=== PATIENT | male | born 1965 | race Caucasian/White ===

== ENCOUNTER 2019-11-21 03:37 | Observation (INO) | payer OTHER ==
[2019-11-21] MEDS ORDERED: VANCOMYCIN IV PER PHARMACY 1 EACH MISC MISCELLANE PRN (04:05)
[2019-11-21] MEDS ORDERED: VANCOMYCIN 2,250 MG in SODIUM CHLORIDE 0.9% 500 ML 500 ML IVPB STA (04:09)
--- NOTE | 2019-11-21 04:26 | ED ---
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 Patient reports that he spends about 12 hours sitting and gets frequent boils on his legs due to this. He states he can usually open them and drain them. He states that couple days ago he drained 1 on his right posterior thigh but since that time has persistent pain, drainage and is noticed redness and swelling of his anterior thigh. Patient denies fevers or chills. Patient denies being diabetic. She denies any pain in the rectum or pain with bowel movements. Denies any pain in the penis or scrotum. - Related Data Home Medications Medication Instructions Recorded Confirmed Ibuprofen [Motrin] 800 mg PO Q6HR PRN 11/13/13 11/13/13 Penicillin V Potassium [Pen Vee K] 500 mg PO TID 11/13/13 11/13/13 Allergies Allergy/AdvReac Type Severity Reaction Status Date / Time No Known Allergies Allergy Verified 11/21/19 03:50 Review of Systems ROS Statement: Those systems with pertinent positive or pertinent negative responses have been documented in the HPI. ROS Other: All systems not noted in ROS Statement are negative. Past Medical History Additional Past Medical History / Comment(s): dental pain History of Any Multi-Drug Resistant Organisms: None Reported Past Surgical History: Cholecystectomy, Tonsillectomy Past Psychological History: No Psychological Hx Reported Smoking Status: Current every day smoker Past Alcohol Use History: Occasional Past Drug Use History: None Reported General Exam - General Exam Comments Initial Comments: Physical Exam GENERAL: Patient is well-developed and well-nourished. Patient is nontoxic and well- hydrated and is in no distress. HENT: Normocephalic, Atraumatic. EYES: PERRL, EOMI PULMONARY: Unlabored respirations. No audible rales rhonchi or wheezing was noted. CARDIOVASCULAR: There is a regular rate and rhythm without any murmurs gallops or rubs. ABDOMEN: Soft and nontender with normal bowel sounds. SKIN: Multiple healed lesions on the thigh tracks consistent with chronic infections Open draining wound in the posterior medial thigh on the right, significant surrounding erythema induration, no fluctuance palpated Large tender inguinal lymph nodes : Deferred NEUROLOGIC: Patient is alert and oriented x3. Moving all extremities spontaneously MUSCULOSKELETAL: Normal extremities with adequate strength and full range of motion. No lower extremity swelling or edema. No calf tenderness. PSYCHIATRIC: Normal psychiatric evaluation. Limitations: no limitations Course Vital Signs 11/21/19 11/21/19 03:46 06:19 Temperature 98.1 F Pulse Rate 105 H 94 Respiratory 18 18 Rate Blood Pressure 157/89 162/82 O2 Sat by Pulse 97 95 Oximetry Medical Decision Making - Medical Decision Making Patient was seen and evaluated history was obtained from the patient His exam is concerning for very large area of cellulitis possible underlying abscess however due to induration no area of fluctuance is palpated Septic workup was initiated patient has leukocytosis with no lactic acidosis - recent undiagnosed diabetes with a glucose of greater than 450, insulin was ordered Computed tomography scan confirms a abscess measuring 9 x 1.5 cm his findings were discussed with surgeon application support manager Dr. Lindsay who agrees with the plan for a mission to medicine for sepsis and diabetes she will be on consult for possible I&D The patient was updated on plan and is agreeable - Lab Data Result diagrams: 11/21/19 04:21 11/21/19 04:21 Lab Results 11/21/19 11/21/19 11/21/19 Range/Units 04:21 04:21 04:21 WBC 15.9 H (3.8-10.6) k/uL RBC 4.84 (4.30-5.90) m/uL Hgb 15.3 (13.0-17.5) gm/dL Hct 45.2 (39.0-53.0) % MCV 93.4 (80.0-100.0) fL MCH 31.5 (25.0-35.0) pg MCHC 33.8 (31.0-37.0) g/dL RDW 13.4 (11.5-15.5) % Plt Count 370 (150-450) k/uL Neutrophils % 80 % Lymphocytes % 10 % Monocytes % 6 % Eosinophils % 2 % Basophils % 0 % Neutrophils # 12.7 H (1.3-7.7) k/uL Lymphocytes # 1.6 (1.0-4.8) k/uL Monocytes # 0.9 (0-1.0) k/uL Eosinophils # 0.3 (0-0.7) k/uL Basophils # 0.1 (0-0.2) k/uL PT 9.5 (9.0-12.0) sec INR 0.9 (<1.2) APTT 25.3 (22.0-30.0) sec Sodium 132 L (137-145) mmol/L Potassium 4.5 (3.5-5.1) mmol/L Chloride 102 (98-107) mmol/L Carbon Dioxide 20 L (22-30) mmol/L Anion Gap 10 mmol/L BUN 11 (9-20) mg/dL Creatinine 0.41 L (0.66-1.25) mg/dL Est GFR (CKD-EPI)AfAm >90 (>60 ml/min/1.73 sqM) Est GFR (CKD-EPI)NonAf >90 (>60 ml/min/1.73 sqM) Glucose 454 H (74-99) mg/dL POC Glucose (mg/dL) (75-99) mg/dL POC Glu Mycologist ID Plasma Lactic Acid Gray (0.7-2.0) mmol/L Calcium 9.2 (8.4-10.2) mg/dL Total Bilirubin 1.0 (0.2-1.3) mg/dL AST 65 H (17-59) U/L ALT 55 H (4-49) U/L Alkaline Phosphatase 187 H (38-126) U/L Total Protein 6.6 (6.3-8.2) g/dL Albumin 3.7 (3.5-5.0) g/dL Urine Color Urine Appearance (Clear) Urine pH (5.0-8.0) Ur Specific [place] (1.001-1.035) Urine Protein (Negative) Urine Glucose (UA) (Negative) Urine Ketones (Negative) Urine Blood (Negative) Urine Nitrite (Negative) Urine Bilirubin (Negative) Urine Urobilinogen (<2.0) mg/dL Ur Leukocyte Esterase (Negative) 11/21/19 11/21/19 11/21/19 Range/Units 04:21 04:35 05:46 WBC (3.8-10.6) k/uL RBC (4.30-5.90) m/uL Hgb (13.0-17.5) gm/dL Hct (39.0-53.0) % MCV (80.0-100.0) fL MCH (25.0-35.0) pg MCHC (31.0-37.0) g/dL RDW (11.5-15.5) % Plt Count (150-450) k/uL Neutrophils % % Lymphocytes % % Monocytes % % Eosinophils % % Basophils % % Neutrophils # (1.3-7.7) k/uL Lymphocytes # (1.0-4.8) k/uL Monocytes # (0-1.0) k/uL Eosinophils # (0-0.7) k/uL Basophils # (0-0.2) k/uL PT (9.0-12.0) sec INR (<1.2) APTT (22.0-30.0) sec Sodium (137-145) mmol/L Potassium (3.5-5.1) mmol/L Chloride (98-107) mmol/L Carbon Dioxide (22-30) mmol/L Anion Gap mmol/L BUN (9-20) mg/dL Creatinine (0.66-1.25) mg/dL Est GFR (CKD-EPI)AfAm (>60 ml/min/1.73 sqM) Est GFR (CKD-EPI)NonAf (>60 ml/min/1.73 sqM) Glucose (74-99) mg/dL POC Glucose (mg/dL) 379 H (75-99) mg/dL POC Glu Mycologist ID Manuela, Micki Plasma Lactic Acid Gray 1.2 (0.7-2.0) mmol/L Calcium (8.4-10.2) mg/dL Total Bilirubin (0.2-1.3) mg/dL AST (17-59) U/L ALT (4-49) U/L Alkaline Phosphatase (38-126) U/L Total Protein (6.3-8.2) g/dL Albumin (3.5-5.0) g/dL Urine Color Yellow Urine Appearance Clear (Clear) Urine pH 6.5 (5.0-8.0) Ur Specific [place] 1.035 (1.001-1.035) Urine Protein Negative (Negative) Urine Glucose (UA) 4+ H (Negative) Urine Ketones 1+ H (Negative) Urine Blood Negative (Negative) Urine Nitrite Negative (Negative) Urine Bilirubin Negative (Negative) Urine Urobilinogen <2.0 (<2.0) mg/dL Ur Leukocyte Esterase Negative (Negative) Disposition Clinical Impression: Sepsis, Abscess, Uncontrolled diabetes mellitus Disposition: ADMITTED IP TO THIS HOSP Condition: Serious Is patient prescribed a controlled substance at d/c from ED?: No Referrals: None,Stated [Primary Care Provider] - 1-2 days
[2019-11-21 04:30] LABS: Basophils # (A) 0.1 k/uL (0-0.2); Basophils % (A) 0 %; Eosinophils # (A) 0.3 k/uL (0-0.7); Eosinophils % (A) 2 %; HCT 45.2 % (39.0-53.0); HGB 15.3 gm/dL (13.0-17.5); Lymphocytes # (A) 1.6 k/uL (1.0-4.8); Lymphocytes % (A) 10 %; MCH 31.5 pg (25.0-35.0); MCHC 33.8 g/dL (31.0-37.0); MCV 93.4 fL (80.0-100.0); Mean Platelet Volume 7.8; Monocytes # (A) 0.9 k/uL (0-1.0); Monocytes % (A) 6 %; Neutrophils # (A) 12.7 k/uL (1.3-7.7); Neutrophils % (A) 80 %; Platelet Count 370 k/uL (150-450); RBC 4.84 m/uL (4.30-5.90); RDW 13.4 % (11.5-15.5); WBC 15.9 k/uL (3.8-10.6)
[2019-11-21] MEDS: SODIUM CHLORIDE 0.9% 1,000 ML IV SCH ×3 (04:34→19:40)
[2019-11-21] MEDS: SODIUM CHLORIDE 0.9% 500 ML 500 ML IV SCH ×2 (04:34→05:07)
[2019-11-21 04:40] LABS: ALT 55 U/L (4-49); AST 65 U/L (17-59); African American GFR (CKD) >90 (>60 ml/min/1.73 sqM); Albumin 3.7 g/dL (3.5-5.0); Alkaline Phosphatase 187 U/L (38-126); Anion Gap 10 mmol/L; Blood Urea Nitrogen 11 mg/dL (9-20); Calcium 9.2 mg/dL (8.4-10.2); Carbon Dioxide 20 mmol/L (22-30); Chloride 102 mmol/L (98-107); Glucose 454 mg/dL (74-99); Non-African American GFR(CKD) >90 (>60 ml/min/1.73 sqM); Potassium 4.5 mmol/L (3.5-5.1); Sodium 132 mmol/L (137-145); Total Protein 6.6 g/dL (6.3-8.2)
[2019-11-21 04:42] LABS: INR 0.9 (<1.2); Partial Thromboplastin Time 25.3 sec (22.0-30.0); Prothrombin Time 9.5 sec (9.0-12.0)
[2019-11-21] MEDS ORDERED: INSULIN REGULAR 100 UNIT/ML VIAL SQ ONE (04:46)
[2019-11-21 04:51] LABS: Appearance,Urine Clear (Clear); Bilirubin,Urine Negative (Negative); Blood,Urine Negative (Negative); Color,Urine Yellow; Glucose,Urine (UA) 4+ (Negative); Ketones,Urine 1+ (Negative); Leukocyte Esterase,Urine Negative (Negative); Nitrite,Urine Negative (Negative); PH, Urine 6.5 (5.0-8.0); Protein,Urine Negative (Negative); Specific Gravity,Urine 1.035 (1.001-1.035); Urobilinogen,Urine <2.0 mg/dL (<2.0)
[2019-11-21 05:48] LABS: Glucose,Whole Blood 379 mg/dL (75-99)
--- NOTE | 2019-11-21 06:10 | CT ---
EXAMINATION TYPE: CT pelvis w con DATE OF EXAM: 11/21/2019 COMPARISON: None HISTORY: R/O Abcess in Rt Groin CT DLP: 1968.1 mGycm Automated exposure control for dose reduction was used. CONTRAST: Performed with IV Contrast, patient injected with 100 mL of Isovue 300. Images were obtained from the iliac crests to the subtrochanteric femurs with IV contrast. There is rounded 3 cm umbilical hernia that contains fat. There is no free fluid in the pelvis. There is prostatic calcification. Bladder distends smoothly. There are some sigmoid diverticula. I see no sign of diverticulitis. Appendix is medial and appears normal. There is no inguinal hernia. There is no free fluid in the pelvis. There is subcutaneous edema and fluid on the anterior medial aspect of the right upper thigh. The but tock soft tissues appear intact. The bony structures appear intact IMPRESSION: Inflammatory changes with fat stranding and subcutaneous edema in the medial anterior right upper thi gh consistent with cellulitis and abscess. Elongated fluid collection measures 9 x 1.5 cm. No sign of muscle involvement. Sigmoid diverticulosis. Normal appendix.
[2019-11-21] MEDS ORDERED: ONDANSETRON 4 MG/2 ML VIAL IVP PRN (06:28)
[2019-11-21] MEDS ORDERED: NALOXONE 0.4 MG/ML 1 ML VIAL IV PRN (06:28)
[2019-11-21] MEDS: MORPHINE SULFATE 4 MG/ML SYRINGE IV PRN (08:30)
[2019-11-21] MEDS: INSULIN ASPART (NovoLOG) 100 UNIT/ML VIAL SQ SCH ×4 (08:31→20:49)
--- NOTE | 2019-11-21 10:34 | P.GSCN ---
History of Present Illness Consult date: 11/21/19 History of present illness: CHIEF COMPLAINT: Right groin/thigh abscess HISTORY OF PRESENT ILLNESS: The patient is a 53 year old male who comes in with new hyperglycemia including swelling and tenderness along the right groin and thigh. He has past history of recurrent boils along the right groin that will spontaneously resolve on its own and list in 3 days. He reports the swelling and pain had become acute in the last 3 days. No reports of fevers chills. He also reports not seeing a physician or primary care doctor in the past for general medical care. He comes in with a white count over 15,000. He reports tobacco use. He also comes in with elevated LFTs as well as hyponatremia. General surgery is consulted regarding right groin abscess. He reports hunger and wants to go home as soon as possible. PAST MEDICAL HISTORY: See list and reviewed PAST SURGICAL HISTORY: See list and reviewed MEDICATIONS: See list and reviewed ALLERGIES: See list and reviewed SOCIAL HISTORY: See list and reviewed FAMILY HISTORY: See list and reviewed REVIEW OF ORGAN SYSTEMS: CONSTITUTIONAL: No fevers or chills. No recent weight loss. He is over 80 pounds overweight. EYES: Denies any trouble with vision. No glasses. HEENT: No difficulties with hearing. No nosebleeds. No difficulty swallowing. RESPIRATORY: Denies pneumonia. Denies any troubles with breathing or dyspnea on exertion. CARDIOVASCULAR: Denies any chest pain, palpitations, or recent heart attacks. GASTROINTESTINAL: Past cholecystectomy. Denies change in bowel habits and gas bloat. GENITOURINARY: Denies any blood in urine or increased urinary frequency. NEUROLOGICAL: Denies any numbness or tingling along the distal extremities. No seizure disorders or headaches. MUSCULOSKELETAL: Denies any back pain, stiffness or joint arthritis. SKIN: No current skin cancer. Past history of recurrent boils along the right thigh spontaneously resolves in the past 10 years. PSYCHIATRIC: Denies current depression or suicidal thoughts. ENDOCRINE: Denies current thyroid disorders. Has new blood sugar glucose intolerance. HEME/LYMPHATIC: Denies any lumps and bumps around the neck. No recent deep venous thrombosis. ALLERGY/IMMUNOLOGY: No immunoglobulin therapy. No immune deficiencies. BREAST: Denies current breast lumps, pain or nipple discharge. PHYSICAL EXAM: VITALS: Reviewed CONSTITUTIONAL: Well developed and in no acute distress. EYES: Conjuctivae without sclera icterus. Pupils are equally round and reactive to light. Extraocular movements grossly intact. HEAD, EARS, NOSE, THROAT: Moist buccal mucosa. Head is atraumatic, normocephalic. Hears conversational speech. No nasal drainage. NECK: Supple. No JV distention. No thyroidomegaly. RESPIRATORY: Non-labored respirations and equal bilateral excursions. No gross wheezes. CARDIOVASCULAR: Regular rate and rhythm. Extremities without moderate edema. Palpable 2+ radial pulses. ABDOMEN: Soft. Non-tender. Nondistended. LYMPH: No neck lymphadenopathy. MUSCULOSKELETAL: Nail and fingers with good capillary refill. No clubbing cyanosis. SKIN: Warm and well perfused with good skin turgor. NEUROLOGIC: Cranial nerves II through XII grossly intact. Sensation upper and extremities intact. No focal or lateralizing signs. PSYCH: Appropriate affect. Alert and oriented to person, place and time. Displ ays appropriate insight. CLINCAL LABS: Reviewed. WBC elevated at 15,600. LFTs AST ALT and alkaline phosphatase also elevated. Sodium 130 and low. IMAGING: Independently reviewed CT pelvis demonstrating subcutaneous edema and thin layer fluid collection deep to the subcutaneous tissue extending from the right groin to the right medial thigh. RADIOLOGY: Report reviewed. CT pelvis confirms 9 cm x 2 cm fluid collection deep subcutaneous tissue right thigh. EKG: Abnormal with incomplete right bundle guera block and left anterior fascicular block ASSESSMENT: 1. Complicated right groin abscess with cellulitis 2. New uncontrolled hyperglycemia 3. Leukocytosis 4. Tobacco use 5. Hyponatremia 6. Elevated LFTs 7. Lack of general medical care PLAN: 1. Agree with drainage of complicated right groin abscess with cellulitis. Area was demarcated and marked by me. Benefits and risks of surgical intervention was described to the patient including placement of drain. 2. Will need strict glycemic control. Also recommend hemoglobin A1c for likely prolonged uncontrolled diabetes type 2 3. Aerobic and anaerobic cultures would be sent to guide antibiotic management. 4. Disposition described patient at least 4-5 days pending cultures including controlling hyperglycemia 5. Overall, patient presents with elevated risk of surgical intervention with Baseline abnormal EKG, hyperglycemia Thank you for this kind consultation. Past Medical History Additional Past Medical History / Comment(s): dental pain History of Any Multi-Drug Resistant Organisms: None Reported Past Surgical History: Cholecystectomy, Tonsillectomy Past Anesthesia/Blood Transfusion Reactions: No Reported Reaction Past Psychological History: No Psychological Hx Reported Smoking Status: Current every day smoker Past Alcohol Use History: Occasional Past Drug Use History: None Reported - Past Family History Mother Family Medical History: Diabetes Mellitus Medications and Allergies Home Medications Medication Instructions Recorded Confirmed Type Acetaminophen [Tylenol Extra 1,000 mg PO Q6H PRN 11/21/19 11/21/19 History Strength] Fish Oil/Dha/Epa [Fish Oil 1,200 1 cap PO DAILY 11/21/19 11/21/19 History mg Fish Oil] Ibuprofen 400 mg PO Q8H 11/21/19 11/21/19 History Multivitamins, Thera [Multivitamin 1 tab PO DAILY 11/21/19 11/21/19 History (formulary)] Allergies Allergy/AdvReac Type Severity Reaction Status Date / Time No Known Allergies Allergy Verified 11/21/19 08:45 Surgical - Exam Vital Signs Temp Pulse Resp BP Pulse Ox 98.1 F 105 H 18 157/89 97 11/21/19 03:46 11/21/19 03:46 11/21/19 03:46 11/21/19 03:46 11/21/19 03:46 Results - Labs 11/21/19 04:21 11/21/19 04:21 Abnormal Lab Results - Last 24 Hours (Table) 11/21/19 11/21/19 11/21/19 Range/Units 04:21 04:21 04:35 WBC 15.9 H (3.8-10.6) k/uL Neutrophils # 12.7 H (1.3-7.7) k/uL Sodium 132 L (137-145) mmol/L Carbon Dioxide 20 L (22-30) mmol/L Creatinine 0.41 L (0.66-1.25) mg/dL Glucose 454 H (74-99) mg/dL POC Glucose (mg/dL) (75-99) mg/dL AST 65 H (17-59) U/L ALT 55 H (4-49) U/L Alkaline Phosphatase 187 H (38-126) U/L Urine Glucose (UA) 4+ H (Negative) Urine Ketones 1+ H (Negative) 11/21/19 Range/Units 05:46 WBC (3.8-10.6) k/uL Neutrophils # (1.3-7.7) k/uL Sodium (137-145) mmol/L Carbon Dioxide (22-30) mmol/L Creatinine (0.66-1.25) mg/dL Glucose (74-99) mg/dL POC Glucose (mg/dL) 379 H (75-99) mg/dL AST (17-59) U/L ALT (4-49) U/L Alkaline Phosphatase (38-126) U/L Urine Glucose (UA) (Negative) Urine Ketones (Negative) Diabetes panel 11/21/19 Range/Units 04:21 Sodium 132 L (137-145) mmol/L Potassium 4.5 (3.5-5.1) mmol/L Chloride 102 (98-107) mmol/L Carbon Dioxide 20 L (22-30) mmol/L BUN 11 (9-20) mg/dL Creatinine 0.41 L (0.66-1.25) mg/dL Glucose 454 H (74-99) mg/dL Calcium 9.2 (8.4-10.2) mg/dL AST 65 H (17-59) U/L ALT 55 H (4-49) U/L Alkaline Phosphatase 187 H (38-126) U/L Total Protein 6.6 (6.3-8.2) g/dL Albumin 3.7 (3.5-5.0) g/dL Calcium panel 11/21/19 Range/Units 04:21 Calcium 9.2 (8.4-10.2) mg/dL Albumin 3.7 (3.5-5.0) g/dL Pituitary panel 11/21/19 Range/Units 04:21 Sodium 132 L (137-145) mmol/L Potassium 4.5 (3.5-5.1) mmol/L Chloride 102 (98-107) mmol/L Carbon Dioxide 20 L (22-30) mmol/L BUN 11 (9-20) mg/dL Creatinine 0.41 L (0.66-1.25) mg/dL Glucose 454 H (74-99) mg/dL Calcium 9.2 (8.4-10.2) mg/dL Adrenal panel 11/21/19 Range/Units 04:21 Sodium 132 L (137-145) mmol/L Potassium 4.5 (3.5-5.1) mmol/L Chloride 102 (98-107) mmol/L Carbon Dioxide 20 L (22-30) mmol/L BUN 11 (9-20) mg/dL Creatinine 0.41 L (0.66-1.25) mg/dL Glucose 454 H (74-99) mg/dL Calcium 9.2 (8.4-10.2) mg/dL Total Bilirubin 1.0 (0.2-1.3) mg/dL AST 65 H (17-59) U/L ALT 55 H (4-49) U/L Alkaline Phosphatase 187 H (38-126) U/L Total Protein 6.6 (6.3-8.2) g/dL Albumin 3.7 (3.5-5.0) g/dL Assessment and Plan (1) Cellulitis of right groin Current Visit: Yes Status: Acute Code(s): L03.314 - CELLULITIS OF GROIN SNOMED Code(s): 57597342 (2) Hyperglycemia due to type 2 diabetes mellitus Current Visit: Yes Status: Acute Code(s): E11.65 - TYPE 2 DIABETES MELLITUS WITH HYPERGLYCEMIA SNOMED Code(s): 339182355640710 (3) Leukocytosis Current Visit: Yes Status: Acute Code(s): D72.829 - ELEVATED WHITE BLOOD CELL COUNT, UNSPECIFIED SNOMED Code(s): 082771577 (4) Abnormal EKG Current Visit: Yes Status: Acute Code(s): R94.31 - ABNORMAL ELECT ROCARDIOGRAM [ECG] [EKG] SNOMED Code(s): 398768399 (5) Fascicular block Current Visit: Yes Status: Acute Code(s): I44.60 - UNSPECIFIED FASCICULAR BLOCK SNOMED Code(s): 170122207 (6) Right bundle branch block (RBBB) Current Visit: Yes Status: Acute Code(s): I45.10 - UNSPECIFIED RIGHT BUNDLE- BRANCH BLOCK SNOMED Code(s): 88260012 (7) Hypertensive heart disease Current Visit: Yes Status: Acute Code(s): I11.9 - HYPERTENSIVE HEART DISEASE WITHOUT HEART FAILURE SNOMED Code(s): 54949844 (8) Tobacco abuse Current Visit: Yes Status: Acute Code(s): Z72.0 - TOBACCO USE SNOMED Code(s): 534593628 (9) Uncontrolled diabetes mellitus Current Visit: Yes Status: Acute Code(s): E11.65 - TYPE 2 DIABETES MELLITUS WITH HYPERGLYCEMIA SNOMED Code(s): 55396919 (10) Abscess of right groin Current Visit: Yes Status: Acute Code(s): L02.214 - CUTANEOUS ABSCESS OF GROIN SNOMED Code(s): 29589054
[2019-11-21] MEDS ORDERED: KETAMINE 10 MG/ML 20 ML VIAL ONE (12:01)
[2019-11-21] MEDS ORDERED: fentaNYL (PF) 50 MCG/ML 2 ML AMP ONE (12:01)
[2019-11-21] MEDS ORDERED: MIDAZOLAM 2 MG/2 ML VIAL ONE (12:01)
[2019-11-21] MEDS ORDERED: PROPOFOL 10 MG/ML 20 ML VIAL IV ONE (12:01)
[2019-11-21] MEDS ORDERED: LACTATED RINGERS 1,000 ML IV ONE ×2 (12:06→12:17)
[2019-11-21] MEDS ORDERED: BUPIVACAINE (PF) 0.25% 30 ML VIAL SQ ONE (12:17)
--- NOTE | 2019-11-21 13:04 | P.OP ---
Date of Procedure: 11/21/19 Description of Procedure: SURGEON: HARSHIL MENENDEZ MD TECHNICIAN PREVENTATIVE MEDICINE: NONE. PREOPERATIVE DIAGNOSES: 1. Cellulitis with abscess right upper medial thigh 2. History of uncontrolled diabetes type 2 with hyperglycemia, new diagnosis 3. Leukocytosis 4. Tobacco use 5. Hyponatremia 6. Elevated liver function tests 7. Morbid obesity due to excess calories, BMI 38.4 POSTOPERATIVE DIAGNOSES: 1. Cellulitis with abscess right upper medial thigh, 18 cm x 8.5 cm 2. History of uncontrolled diabetes type 2 with hyperglycemia, new diagnosis 3. Leukocytosis 4. Tobacco use 5. Hyponatremia 6. Elevated liver function tests 7. Morbid obesity due to excess calories, BMI 38.4 OPERATION: 1. Drainage of subcutaneous complex right upper medial thigh anterior compartment 18 x 8.5 cm with cellulitis. 2. Mechanical debridement with 4 L water jet pulse lavage of complex right upper medial thigh anterior compartment. 3. Placement of 1/4-inch sharlene drain, right upper medial thigh, anterior compartment. ANESTHESIA: MAC with local ESTIMATED BLOOD LOSS: 5 mL. SPECIMENS REMOVED: Aerobic, anaerobic culture COMPLICATIONS: None. Disposition: floor Operative Findings: 1. Moderate edema along right groin thigh with counter incision made for placement of quarter-inch Sharlene drain 2. Wound irrigated with 4 L normal saline after cultures obtained 3. No philipp purulence found INDICATIONS: The patient is a 53-year-old male who comes in with more than a 3 day history of acute right upper medial thigh anterior compartment. He comes in with hyperglycemia and new diagnosis of poorly controlled diabetes. Urgent surgical intervention was described. Benefits and risks were reviewed. Informed consent was obtained. DESCRIPTION: Patient was brought into the operating room, laid in supine position. After adequate IV sedation, the right leg was prepped and draped in standard sterile fashion using ChloraPrep and placed in frog-leg position. Prior to incision a timeout protocol was confirmed with surgical team regarding patient's name including procedures being performed. Preoperative antibiotic, which was scheduled vancomycin were already administered. DVT prophylaxis with bilateral SCDs were reviewed. The erythema and cellulitic border was marked 18 x 8.5 cm. The skin was localized using local anesthetic. A stab incision at the right upper medial anterior compartment of the thigh was deepened into the subcutaneous tissue. No philipp purulence was found. Aerobic, anaerobic cultures were obtained. The pocket was explored using digital palpation. Using 4 L normal saline waterjet pulsed lavage, the wound was copiously irrigated. A 1/4-inch sharlene drain was tunnelled from lateral to medial thigh with a counter-incision for adequate drainage of the pocket. The [place] drain was secured to skin using 2-0 nylon. A box of 4 x 4's, ABD and 6 inch [place] was placed around the leg after cleansing the skin. At the end of the procedure, the needle and sponge counts were verified correct by the surgical orderly. The patient tolerated the procedure well and was taken to postanesthesia care unit in stable condition.
[2019-11-21 13:53] LABS: Glucose,Whole Blood 177 mg/dL (75-99)
[2019-11-21] MEDS: VANCOMYCIN 2,000 MG in SODIUM CHLORIDE 0.9% 500 ML 500 ML IVPB SCH ×2 (13:53→20:49)
[2019-11-21] MEDS ORDERED: TEMAZEPAM 15 MG CAP PO PRN (14:26)
[2019-11-21] MEDS ORDERED: ALPRAZolam 0.25 MG TAB PO PRN (14:26)
[2019-11-21] MEDS ORDERED: IBUPROFEN 200 MG TAB PO PRN (14:30)
[2019-11-21] MEDS ORDERED: IBUPROFEN 400 MG TAB PO PRN (14:40)
[2019-11-21] MEDS ORDERED: PIPERACILLIN-TAZOBACTAM 3.375 GM in SODIUM CHLORIDE 0.9% 100 ML IVPB SCH (16:00)
[2019-11-21] MEDS: NICOTINE 14MG/24HR PATCH TRANSDERM SCH (16:19)
[2019-11-21] MEDS: INSULIN DETEMIR (LEVEMIR) 100 UNIT/ML SYR SQ SCH ×2 (16:22→23:39)
--- NOTE | 2019-11-21 16:40 | HP ---
HISTORY AND PHYSICAL CHIEF COMPLAINT: Right groin abscess and diabetes mellitus, new onset. 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 Currently the patient had right groin swelling and abscess which the patient tried to drain. Because of increasing pain and swelling, the patient came to [facility] and was admitted for further evaluation and treatment. A CT scan of the pelvis showed about 9 x 1.5 cm long fluid collection and Dr. Bocanegra performed drainage of a complicated right groin abscess and cellulitis. Of note, blood sugar is also elevated up to 454. The patient is started on Lantus with significant reduction in the blood sugar levels. AST/ALT was also elevated. There is no history of fever, rigors. No history of headache, loss of consciousness, seizures. PAST MEDICAL HISTORY: History of dental pain and cholecystectomy. MEDICATIONS: 1. Multivitamins 1 p.o. daily. 2. Fish oil. 3. Ibuprofen. 4. Tylenol. ALLERGIES: None. FAMILY HISTORY: History of diabetes in the family. SOCIAL HISTORY: History of smoking ongoing. REVIEW OF SYSTEMS: ENT: No diminished vision. No diminished hearing. Cardiovascular: No angina or palpitations. Respirations: No cough. No hemoptysis. GI no nausea or vomiting. no dysuria. Nervous system: No numbness or weakness. ALLERGY: No asthma or hayfever. MUSCULOSKELETAL as mentioned earlier. HEMATOLOGY/ONCOLOGY: No history of anemia. ENDOCRINE: As mentioned earlier. CONSTITUTIONAL: As mentioned earlier. DERMATOLOGY: As mentioned earlier. RHEUMATOLOGY: Negative. PSYCHIATRIC: As mentioned earlier. PHYSICAL EXAMINATION: Alert and oriented x3. Pulse 85. Blood pressure 145/70, respiration 16, temperature 98 degrees, pulse ox 94% on room air. HEENT: Conjunctive normal. Oral mucosa moist. NECK is no jugular venous distention. No carotid bruit. No lymph node enlargement. CARDIOVASCULAR: S1, S2 muffled. No S3, no S4. RESPIRATORY: Breath sounds diminished in the bases. No rhonchi. No crackles. ABDOMEN: Soft, obese, nontender. No mass. LEGS: Right groin abscess status post incision and drainage. NERVOUS SYSTEM: Higher functions as mentioned earlier. Moves all four limbs. No focal motor or sensory deficits. LYMPHATICS: No lymph nodes palpable in the neck, axilla or groin. JOINTS: No active deforming arthropathy. SKIN: As mentioned earlier. LABS: WBC 15.9, hemoglobin 15.2, sodium 132, potassium 4.5, glucose noted. AST/ALT noted. ASSESSMENT: 1. Acute right groin abscess with failure of outpatient treatment, status post incision and drainage with possible early sepsis present on admission. 2. Diabetes mellitus type 2 new onset with hyperglycemia. 3. Hyponatremia. 4. Increased WBC. 5. Increased AST/ALT with mild hepatitis. 6. Increased alkaline phosphatase. 7. Obesity with body mass of 38.4. 8. History of dental pain. 9. History of cholecystectomy. 10.History of nicotine dependence, continued ongoing. 11.FULL CODE. RECOMMENDATIONS AND DISCUSSION: This 58-year-old gentleman who presented with multiple complex medical issues. We will monitor the patient closely. Continue the current medications, symptomatic treatment. We will initiate broad-spectrum IV antibiotics. Follow the cultures. Follow closely with surgery. I recommend Lantus 15 units subcutaneously b.i.d. and continue to monitor. Otherwise, prognosis guarded because of multiple complex medical issues. Further recommendations to follow. I would also recommend the patient follow up with primary physician in the outpatient setting. See orders for details. MMODL / IJN: [id number] /
[2019-11-21 17:01] LABS: Glucose,Whole Blood 232 mg/dL (75-99)
[2019-11-21] MEDS: HYDROcodone/APAP 5-325MG 1 EACH TAB PO PRN (17:03)
[2019-11-21] MEDS: metFORMIN 500 MG TAB PO SCH (17:47)
[2019-11-21 20:45] LABS: Glucose,Whole Blood 222 mg/dL (75-99)
[2019-11-21] MEDS: CEFEPIME 2 GM in SODIUM CHLORIDE 0.9% 100 ML IVPB SCH (20:49)
[2019-11-21 23:25] LABS: Glucose,Whole Blood 245 mg/dL (75-99)
--- NOTE | 2019-11-21 23:57 | P.CONS ---
History of Present Illness - Reason for Consult Consult date: 11/21/19 Right leg abscess Requesting physician: Roseline Cuenca - Chief Complaint Right upper thigh pain swelling and redness x few days - History of Present Illness Patient is a 53-year-old male with a past medical history significant for recurrent skin soft tissue infection patient presented to the ER with chief complaints of right upper medial thigh area pain swelling redness patient mention he started as a boil and has gradual increase in size over the last few days , the area has become more swollen and red and painful patient described the pain to be more of a throbbing to daily drinking about 7 out of 10 and no radiation he did have some chills but denies high-grade fever with these symptoms the patient was evaluated by the physician on arrival to. The patient has been afebrile he did have elevated white count 15,[address] of the pelvis that shows right anterior medial thigh area foot collection size of 9 x 1.5 cm, patient subsequently was taken to the OR patient is status post I&D of this area however no purulence was noticed patient has been treated with the vancomycin and Zosyn infection disease was consulted for further management of antibiotic therapy Review of Systems Positive point has been mentioned in the HPI rest of the systems are negative Past Medical History Additional Past Medical History / Comment(s): dental pain History of Any Multi-Drug Resistant Organisms: None Reported Past Surgical History: Cholecystectomy, Tonsillectomy Past Anesthesia/Blood Transfusion Reactions: No Reported Reaction Past Psychological History: No Psychological Hx Reported Smoking Status: Current every day smoker Past Alcohol Use History: Occasional Past Drug Use History: None Reported - Past Family History Mother Family Medical History: Diabetes Mellitus Medications and Allergies Home Medications Medication Instructions Recorded Confirmed Type Acetaminophen [Tylenol Extra 1,000 mg PO Q6H PRN 11/21/19 11/21/19 History Strength] Fish Oil/Dha/Epa [Fish Oil 1,200 1 cap PO DAILY 11/21/19 11/21/19 History mg Fish Oil] Ibuprofen 400 mg PO Q8H 11/21/19 11/21/19 History Multivitamins, Thera [Multivitamin 1 tab PO DAILY 11/21/19 11/21/19 History (formulary)] Allergies Allergy/AdvReac Type Severity Reaction Status Date / Time No Known Allergies Allergy Verified 11/21/19 08:45 Physical Exam Vitals: Vital Signs Temp Pulse Pulse Pulse Resp BP BP 11/21/19 16:00 16 11/21/19 15:00 99.5 F 79 16 133/74 11/21/19 13:46 99.0 F 16 145/79 11/21/19 13:16 85 18 126/65 11/21/19 13:02 86 18 136/72 11/21/19 12:49 97.8 F 86 18 129/67 11/21/19 09:13 16 11/21/19 08:10 98.9 F 95 20 180/93 11/21/19 06:19 94 18 162/82 11/21/19 03:46 98.1 F 105 H 18 157/89 Pulse Ox 11/21/19 16:00 11/21/19 15:00 94 L 11/21/19 13:46 94 L 11/21/19 13:16 96 11/21/19 13:02 96 11/21/19 12:49 94 L 11/21/19 09:13 11/21/19 08:10 95 11/21/19 06:19 95 11/21/19 03:46 97 Intake and Output 11/21/19 11/21/19 11/21/19 06:59 14:59 22:59 Intake Total 600 Output Total 5 Balance 595 Intake: IV 600 Output: Estimated Blood Loss 5 Other: # Voids 1 Weight 124.738 kg 124.738 kg GENERAL DESCRIPTION: Middle-aged male lying in bed, no distress. No tachypnea or accessory muscle of respiration use. HEENT: Shows Pallor , no scleral icterus. Oral mucous membrane is dry. No pharyngeal erythema or thrush NECK: Trachea central, no thyromegaly. LUNGS: Unlabored breathing. Clear to auscultation anteriorly. No wheeze or crackle. HEART: S1, S2, regular rate and rhythm. No loud murmur ABDOMEN: Soft, no tenderness , guarding or rigidity, no organomegaly EXTREMITIES: Right medial thigh is currently dressed in OR dressing no drainage on the dressing SKIN: No rash, no masses palpable. NEUROLOGICAL: The patient is awake, alert, oriented x3, mood and affect normal. Results CBC & Chem 7: 11/21/19 04:21 11/21/19 04:21 Labs: Abnormal Lab Results - Last 24 Hours (Table) 11/21/19 11/21/19 11/21/19 Range/Units 04:21 04:21 04:35 WBC 15.9 H (3.8-10.6) k/uL Neutrophils # 12.7 H (1.3-7.7) k/uL Sodium 132 L (137-145) mmol/L Carbon Dioxide 20 L (22-30) mmol/L Creatinine 0.41 L (0.66-1.25) mg/dL Glucose 454 H (74-99) mg/dL POC Glucose (mg/dL) (75-99) mg/dL AST 65 H (17-59) U/L ALT 55 H (4-49) U/L Alkaline Phosphatase 187 H (38-126) U/L Urine Glucose (UA) 4+ H (Negative) Urine Ketones 1+ H (Negative) 11/21/19 11/21/19 11/21/19 Range/Units 05:46 13:50 16:48 WBC (3.8-10.6) k/uL Neutrophils # (1.3-7.7) k/uL Sodium (137-145) mmol/L Carbon Dioxide (22-30) mmol/L Creatinine (0.66-1.25) mg/dL Glucose (74-99) mg/dL POC Glucose (mg/dL) 379 H 177 H 232 H (75-99) mg/dL AST (17-59) U/L ALT (4-49) U/L Alkaline Phosphatase (38-126) U/L Urine Glucose (UA) (Negative) Urine Ketones (Negative) Assessment and Plan Assessment: 1- patient with right anterior medial thigh area pain swelling and redness this started as a boil representing skin soft tissue infection with no evidence of any muscle involvement on CT status post I&D for no significant purulent drainage was noticed, we'll need for further gram-positive skin thomas and less likely gram-negative infection (1) Cellulitis of right leg Current Visit: Yes Status: Acute Code(s): L03.115 - CELLULITIS OF RIGHT LOWER LIMB SNOMED Code(s): 049830052 Plan: 1-Vancomycin pharmacy to dose target trough of 15 while watching his kidney function and Vanco trough closely 2- discontinue Zosyn dictating risk of nephrotoxicity 3-add cefepime 2 g every 12 hours to cover for gram negatives We will follow on clinical condition and cultures to further adjust medication if needed Thank you for this consultation will follow this patient with you Time with Patient: Greater than 30
[2019-11-22] MEDS: SODIUM CHLORIDE 0.9% 1,000 ML IV SCH ×3 (04:02→22:26)
[2019-11-22] MEDS: VANCOMYCIN 2,000 MG in SODIUM CHLORIDE 0.9% 500 ML 500 ML IVPB SCH ×3 (05:45→21:20)
[2019-11-22 07:43] LABS: Glucose,Whole Blood 225 mg/dL (75-99)
[2019-11-22] MEDS: INSULIN ASPART (NovoLOG) 100 UNIT/ML VIAL SQ SCH ×4 (08:34→21:20)
[2019-11-22] MEDS: INSULIN DETEMIR (LEVEMIR) 100 UNIT/ML SYR SQ SCH ×2 (08:34→21:20)
[2019-11-22] MEDS: MULTIVITAMINS, THERA 1 EACH TAB PO SCH (08:35)
[2019-11-22] MEDS: ENOXAPARIN 40 MG/0.4 ML SYRINGE SQ SCH (08:35)
[2019-11-22] MEDS: CEFEPIME 2 GM in SODIUM CHLORIDE 0.9% 100 ML IVPB SCH ×2 (08:35→21:19)
[2019-11-22] MEDS: metFORMIN 500 MG TAB PO SCH ×2 (08:35→17:59)
[2019-11-22] MEDS ORDERED: NON FORMULARY DRUG (Fish Oil/Dha/Epa [Fish Oil 1,200 Mg Fish Oil] 1 CAP) PO SCH (09:00)
[2019-11-22 09:09] LABS: African American GFR (CKD) >90 (>60 ml/min/1.73 sqM); Anion Gap 6 mmol/L; Blood Urea Nitrogen 8 mg/dL (9-20); Carbon Dioxide 26 mmol/L (22-30); Chloride 104 mmol/L (98-107); Glucose 291 mg/dL (74-99); Non-African American GFR(CKD) >90 (>60 ml/min/1.73 sqM); Potassium 4.8 mmol/L (3.5-5.1); Sodium 136 mmol/L (137-145)
[2019-11-22 09:15] LABS: Basophils # (A) 0.1 k/uL (0-0.2); Basophils % (A) 0 %; Eosinophils # (A) 0.3 k/uL (0-0.7); Eosinophils % (A) 2 %; HCT 43.5 % (39.0-53.0); HGB 13.7 gm/dL (13.0-17.5); Lymphocytes # (A) 1.7 k/uL (1.0-4.8); Lymphocytes % (A) 13 %; MCHC 31.5 g/dL (31.0-37.0); MCV 91.9 fL (80.0-100.0); Mean Platelet Volume 7.6; Monocytes % (A) 7 %; Neutrophils # (A) 9.7 k/uL (1.3-7.7); Neutrophils % (A) 75 %; Platelet Count 380 k/uL (150-450); RBC 4.73 m/uL (4.30-5.90); RDW 13.1 % (11.5-15.5); WBC 12.9 k/uL (3.8-10.6)
[2019-11-22] MEDS: NICOTINE 14MG/24HR PATCH TRANSDERM SCH (10:18)
[2019-11-22 12:08] LABS: Glucose,Whole Blood 237 mg/dL (75-99)
--- NOTE | 2019-11-22 12:15 | P.PN ---
Subjective Progress Note Date: 11/22/19 CHIEF COMPLAINT: Right groin/thigh abscess HISTORY OF PRESENT ILLNESS: The patient is a 53 year old male status post drainage of right groin/thigh abscess, 11/21/2019. He reports moderate improvement of pain and swelling along the groin. No fevers or chills. He feels much better. Blood sugar glucose improved from over 390 to 200s. Pain is controlled. REVIEW OF ORGAN SYSTEMS: No fevers or chills. No chest pain. No nausea or vomiting. PHYSICAL EXAM: VITALS: Reviewed CONSTITUTIONAL: Well developed and in no acute distress. EYES: Conjuctivae without sclera icterus. Pupils are equally round and reactive to light. Extraocular movements grossly intact. HEAD, EARS, NOSE, THROAT: Moist buccal mucosa. Head is atraumatic, normocephalic. Hears conversational speech. No nasal drainage. NECK: Supple. No JV distention. No thyroidomegaly. RESPIRATORY: Non-labored respirations and equal bilateral excursions. No gross wheezes. CARDIOVASCULAR: Regular rate and rhythm. Extremities without moderate edema. Palpable 2+ radial pulses. ABDOMEN: Soft. Non-tender. Nondistended. MUSCULOSKELETAL: Dressing along right groin with [place], clean dry and intact. SKIN: Warm and well perfused with good skin turgor. NEUROLOGIC: Cranial nerves II through XII grossly intact. Sensation upper and extremities intact. No focal or lateralizing signs. PSYCH: Appropriate affect. Alert and oriented to person, place and time. Displays appropriate insight. CLINCAL LABS: Reviewed. WBC elevated at 15,600 down to 12,900. ASSESSMENT: 1. Complicated right groin abscess with cellulitis 2. New uncontrolled hyperglycemia 3. Leukocytosis 4. Tobacco use 5. Hyponatremia 6. Elevated LFTs 7. Lack of general medical care PLAN: 1. He is doing well from a surgical standpoint 2. Will remove dressing tomorrow. 3. Patient anxious for discharge where disposition pending growth of cultures, glucose control, and resolution of leukocytosis described. Objective - Vital Signs Vital signs: Vital Signs Temp 98.6 F 11/22/19 06:50 Pulse 88 11/22/19 06:50 Resp 16 11/22/19 06:50 BP 155/89 11/22/19 06:50 Pulse Ox 95 11/22/19 06:50 Intake & Output 11/21/19 11/22/19 11/22/19 18:59 06:59 18:59 Intake Total 600 100 Output Total 5 Balance 595 100 Weight 124.738 kg Intake: IV 600 Intake, IV Titration 100 Amount Cefepime 2 gm In Sodium 100 Chloride 0.9% 100 ml @ 200 mls/hr IVPB Q12HR [facility] Rx#:[id number] Output: Estimated Blood Loss 5 Other: # Voids 1 3 - Labs CBC & Chem 7: 11/22/19 08:34 11/22/19 08:34 Labs: Abnormal Lab Results - Last 24 Hours (Table) 11/21/19 11/21/19 11/21/19 Range/Units 13:50 16:48 20:43 WBC (3.8-10.6) k/uL Neutrophils # (1.3-7.7) k/uL Sodium (137-145) mmol/L BUN (9-20) mg/dL Creatinine (0.66-1.25) mg/dL Glucose (74-99) mg/dL POC Glucose (mg/dL) 177 H 232 H 222 H (75-99) mg/dL 11/21/19 11/22/19 11/22/19 Range/Units 23:23 06:52 08:34 WBC 12.9 H (3.8-10.6) k/uL Neutrophils # 9.7 H (1.3-7.7) k/uL Sodium (137-145) mmol/L BUN (9-20) mg/dL Creatinine (0.66-1.25) mg/dL Glucose (74-99) mg/dL POC Glucose (mg/dL) 245 H 225 H (75-99) mg/dL 11/22/19 11/22/19 Range/Units 08:34 11:59 WBC (3.8-10.6) k/uL Neutrophils # (1.3-7.7) k/uL Sodium 136 L (137-145) mmol/L BUN 8 L (9-20) mg/dL Creatinine 0.49 L (0.66-1.25) mg/dL Glucose 291 H (74-99) mg/dL POC Glucose (mg/dL) 237 H (75-99) mg/dL Microbiology - Last 24 Hours (Table) 11/21/19 04:21 Blood Culture - Preliminary Blood No Growth after 24 hours 11/21/19 12:45 Gram Stain - Preliminary Thigh - Right Wound Culture - Preliminary 11/21/19 12:45 Anaerobic Culture - Preliminary Thigh - Right Assessment and Plan (1) Cellulitis of right groin Current Visit: Yes Status: Acute Code(s): L03.314 - CELLULITIS OF GROIN SNOMED Code(s): 17801506 (2) Hyperglycemia due to type 2 diabetes mellitus Current Visit: Yes Status: Acute Code(s): E11.65 - TYPE 2 DIABETES MELLITUS WITH HYPERGLYCEMIA SNOMED Code(s): 971781212381250 (3) Leukocytosis Current Visit: Yes Status: Acute Code(s): D72.829 - ELEVATED WHITE BLOOD CELL COUNT, UNSPECIFIED SNOMED Code(s): 706497751 (4) Abnormal EKG Current Visit: Yes Status: Acute Code(s): R94.31 - ABNORMAL ELECTROCARDIOGRAM [ECG] [EKG] SNOMED Code(s): 731323981 (5) Fascicular block Current Visit: Yes Status: Acute Code(s): I44.60 - UNSPECIFIED FASCICULAR BLOCK SNOMED Code(s): 804044555 (6) Right bundle branch block (RBBB) Current Visit: Yes Status: Acute Code(s): I45.10 - UNSPECIFIED RIGHT BUNDLE- BRANCH BLOCK SNOMED Code(s): 09409227 (7) Hypertensive heart disease Current Visit: Yes Status: Acute Code(s): I11.9 - HYPERTENSIVE HEART DISEASE WITHOUT HEART FAILURE SNOMED Code(s): 38705369 (8) Tobacco abuse Current Visit: Yes Status: Acute Code(s): Z72.0 - TOBACCO USE SNOMED Code(s): 631988314 (9) Uncontrolled diabetes mellitus Current Visit: Yes Status: Acute Code(s): E11.65 - TYPE 2 DIABETES MELLITUS WITH HYPERGLYCEMIA SNOMED Code(s): 05801047 (10) Abscess of right groin Current Visit: Yes Status: Acute Code(s): L02.214 - CUTANEOUS ABSCESS OF GROIN SNOMED Code(s): 33149909
[2019-11-22 17:01] LABS: Glucose,Whole Blood 225 mg/dL (75-99)
[2019-11-22] MEDS: ACETAMINOPHEN TAB 325 MG TAB PO PRN (18:04)
[2019-11-22] MEDS ORDERED: VANCOMYCIN TROUGH DUE 1 EACH MISC MISCELLANE ONE (20:00)
[2019-11-22 20:26] LABS: Glucose,Whole Blood 219 mg/dL (75-99)
[2019-11-22] MEDS: MORPHINE SULFATE 4 MG/ML SYRINGE IV PRN (23:02)
--- NOTE | 2019-11-23 01:36 | PN ---
PROGRESS NOTE DATE OF SERVICE: 11/22/2019 This 53-year-old gentleman admitted with right groin abscess also diabetes mellitus also with Lantus. Blood sugar has been well controlled. The cultures are negative so far. Infectious Disease following the patient closely. Dr. Bocanegra performed drainage of subcutaneous complex right upper medial thigh abscess and as well as mechanical debridement. No chest pain. No palpitations. No fever. PHYSICAL EXAMINATION: On exam, alert and oriented x3. Pulse is 85, blood pressure 143/68, respiration 16, temperature 98.4, pulse ox 96% on room air. HEENT: Conjunctivae normal. NECK: No jugular venous distention. CARDIOVASCULAR: S1, S2 muffled. RESPIRATORY: Breath sounds diminished at the bases. No rhonchi, no crackles. ABDOMEN: Soft. LEGS: Status post right upper thigh incision and drainage. NERVOUS SYSTEM: No focal deficits. LABS: WBC 12.9, hemoglobin 13.7. Sodium 136. Glucose noted. ASSESSMENT: 1. Acute right groin abscess with failure of outpatient treatment, status post incision and drainage with possible early sepsis, present on admission. 2. Diabetes mellitus type 2 new onset with hyperglycemia. 3. Hyponatremia. 4. Increased WBC. 5. Increased AST, ALT with mild hepatitis. 6. Increased alkaline phosphatase. 7. Obesity with body mass index of 38.4. 8. History of dental pain. 9. History of cholecystectomy. 10.History of nicotine dependence continued ongoing. 11.FULL CODE. RECOMMENDATIONS AND DISCUSSION: Recommend to continue current medications. Continue with monitoring and symptomatic treatment. Continue with empiric antibiotics. Continue with increase in dose of Lantus. Closely follow. Guarded prognosis. Further recommendations to follow. MMODL / IJN: [id number] /
[2019-11-23 02:39] LABS: Glucose,Whole Blood 213 mg/dL (75-99)
[2019-11-23] MEDS: VANCOMYCIN 2,000 MG in SODIUM CHLORIDE 0.9% 500 ML 500 ML IVPB SCH ×3 (05:27→22:19)
[2019-11-23] MEDS: SODIUM CHLORIDE 0.9% 1,000 ML IV SCH (05:27)
[2019-11-23 07:07] LABS: Glucose,Whole Blood 234 mg/dL (75-99)
--- NOTE | 2019-11-23 07:13 | PN ---
PROGRESS NOTE DATE OF SERVICE: 11/22/2019 REASON FOR FOLLOWUP: Right medial thigh abscess and cellulitis. INTERVAL HISTORY: The patient is currently afebrile. He has been breathing comfortably. Overall pain and discomfort to the right mid thigh has decreased. Denies having any chest pain or shortness of breath or cough. No nausea. No vomiting. No abdominal pain. No diarrhea. PHYSICAL EXAMINATION: Blood pressure 138/73 with a pulse of 79, temperature 98.4. He is 99% on room air. General description is a middle-aged male lying in bed in no distress. RESPIRATORY SYSTEM: Unlabored breathing, clear to auscultation anteriorly. HEART: S1, S2. Regular rate and rhythm. ABDOMEN: Soft, no tenderness. Right medial thigh is currently dressed up. No obvious drainage on the dressing. LABS: White count is down to 12.9. Cultures currently pending. DIAGNOSTIC IMPRESSION AND PLAN: Patient with right medial upper thigh area abscess status post drainage waiting for the culture to finalize. Continue with vancomycin. Discharge antibiotic will depend upon culture report. Continue with supportive care. MMODL / IJN: [id number] /
[2019-11-23] MEDS: NICOTINE 14MG/24HR PATCH TRANSDERM SCH (07:42)
[2019-11-23] MEDS: ACETAMINOPHEN TAB 325 MG TAB PO PRN (07:42)
[2019-11-23] MEDS: metFORMIN 500 MG TAB PO SCH ×2 (07:43→17:21)
[2019-11-23] MEDS: INSULIN ASPART (NovoLOG) 100 UNIT/ML VIAL SQ SCH ×4 (07:43→20:56)
[2019-11-23] MEDS: ENOXAPARIN 40 MG/0.4 ML SYRINGE SQ SCH (07:43)
[2019-11-23] MEDS: INSULIN DETEMIR (LEVEMIR) 100 UNIT/ML SYR SQ SCH ×2 (07:43→20:56)
[2019-11-23] MEDS: MULTIVITAMINS, THERA 1 EACH TAB PO SCH (07:43)
[2019-11-23 08:55] LABS: Basophils % (A) 0 %; Eosinophils # (A) 0.2 k/uL (0-0.7); Eosinophils % (A) 2 %; HCT 41.3 % (39.0-53.0); HGB 13.8 gm/dL (13.0-17.5); Lymphocytes # (A) 1.8 k/uL (1.0-4.8); Lymphocytes % (A) 18 %; MCH 30.7 pg (25.0-35.0); MCHC 33.4 g/dL (31.0-37.0); MCV 91.9 fL (80.0-100.0); Mean Platelet Volume 7.7; Monocytes # (A) 0.7 k/uL (0-1.0); Monocytes % (A) 7 %; Neutrophils # (A) 7.1 k/uL (1.3-7.7); Neutrophils % (A) 71 %; Platelet Count 386 k/uL (150-450)
[2019-11-23 09:40] LABS: Hemoglobin A1C 13.3 % (4.0-6.0)
[2019-11-23] MEDS: CEFEPIME 2 GM in SODIUM CHLORIDE 0.9% 100 ML IVPB SCH ×2 (10:47→20:53)
[2019-11-23 11:09] LABS: Glucose,Whole Blood 194 mg/dL (75-99)
[2019-11-23 11:25] LABS: African American GFR (CKD) >90 (>60 ml/min/1.73 sqM); Anion Gap 8 mmol/L; Blood Urea Nitrogen 7 mg/dL (9-20); Calcium 9.2 mg/dL (8.4-10.2); Carbon Dioxide 21 mmol/L (22-30); Chloride 107 mmol/L (98-107); Glucose 244 mg/dL (74-99); Non-African American GFR(CKD) >90 (>60 ml/min/1.73 sqM); Potassium 4.3 mmol/L (3.5-5.1); Sodium 136 mmol/L (137-145)
--- NOTE | 2019-11-23 12:38 | P.PN ---
Subjective Progress Note Date: 11/23/19 CHIEF COMPLAINT: Abscess right thigh HISTORY OF PRESENT ILLNESS: Patient is status post drainage of right upper thigh abscess with cellulitis and placement of [place] drain with Dr. Bocanegra performed on 11/21/2019. WBC 10.0. Wound cultures are in progress. Patient is afebrile. PHYSICAL EXAM: VITAL SIGNS: Reviewed GENERAL: Well-developed in no acute distress. HEENT: No sclera icterus. Extraocular movements grossly intact. Moist buccal mucosa. Head is atraumatic, normocephalic. Hears conversational speech. No nasal drainage. NECK: Supple without lymphadenopathy. CHEST: Non-labored respirations and equal bilateral excursions. CARDIOVASCULAR: Regular rate with regular rhythm. Palpable 2+ radial pulses. ABDOMEN: Soft. Nondistended. Nontender. MUSCULOSKELETAL: No clubbing or cyanosis. NEUROLOGIC: No focal or lateralizing signs. Cranial nerves II through XII grossly intact. PSYCH: Appropriate affect. Alert and oriented to person, place and time. SKIN: Well perfused. Good skin turgor. Dressing to right thigh clean dry intact. ASSESSMENT: 1. Complicated right groin abscess with cellulitis 2. New uncontrolled hyperglycemia 3. Leukocytosis 4. Tobacco use 5. Hyponatremia 6. Elevated LFTs 7. Lack of general medical care PLAN: -Continue antibiotics -Infectious disease following -Await final culture results Nurse practitioner note has been reviewed by physician. Signing provider agrees with the documented findings, assessment, and plan of care. Objective - Vital Signs Vital signs: Vital Signs Temp 97.9 F 11/23/19 07:00 Pulse 77 11/23/19 07:00 Resp 18 11/23/19 07:00 BP 159/72 11/23/19 07:00 Pulse Ox 96 11/23/19 07:00 Intake & Output 11/22/19 11/23/19 11/23/19 18:59 06:59 18:59 Intake Total 1240 2190 Balance 1240 2190 Intake: Intake, IV Titration 700 2190 Amount Cefepime 2 gm In Sodium 100 100 Chloride 0.9% 100 ml @ 200 mls/hr IVPB Q12HR [facility] Rx#:[id number] Piperacillin-Tazobactam 3 100 .375 gm In Sodium Chloride 0.9% 100 ml @ 25 mls/hr IVPB Q8H [facility] Rx#: [id number] Sodium Chloride 0.9% 1, 1590 000 ml @ 130 mls/hr IV . Q7H42M [facility] Rx#:[id number] Vancomycin 2,000 mg In 500 500 Sodium Chloride 0.9% 500 ml 500 ml @ 167 mls/hr IVPB Q8H [facility] Rx#: [id number] Oral 540 Other: Voiding Method Toilet Toilet # Voids 2 1 - Labs CBC & Chem 7: 11/23/19 08:14 11/23/19 08:14 Labs: Abnormal Lab Results - Last 24 Hours (Table) 11/21/19 11/22/19 11/22/19 Range/Units 04:21 11:59 16:58 POC Glucose (mg/dL) 237 H 225 H (75-99) mg/dL Hemoglobin A1c 13.3 H (4.0-6.0) % 11/22/19 11/23/19 11/23/19 Range/Units 20:21 02:37 07:05 POC Glucose (mg/dL) 219 H 213 H 234 H (75-99) mg/dL Hemoglobin A1c (4.0-6.0) % Microbiology - Last 24 Hours (Table) 11/21/19 04:21 Blood Culture - Preliminary Blood No Growth after 48 hours 11/21/19 12:45 Gram Stain - Preliminary Thigh - Right Wound Culture - Preliminary
--- NOTE | 2019-11-23 15:31 | PN ---
PROGRESS NOTE DATE OF SERVICE: 11/23/2019 REASON FOR FOLLOWUP: Right medial thigh abscess and cellulitis. INTERVAL HISTORY: Patient is currently afebrile, the patient is breathing comfortably. Overall pain and discomfort to the right upper thigh area has improved. No drainage from it. Denies any chest pain or cough. No abdominal pain, no diarrhea. PHYSICAL EXAMINATION: Blood pressure 110/62 with a pulse of 77, temperature 97.9. He is 96% on room air. General description is a middle-aged male up in the room, in no distress. RESPIRATORY SYSTEM: Unlabored breathing, clear to auscultation anteriorly. HEART: S1, S2. Regular rate and rhythm. ABDOMEN: Soft. Right mid thigh area swelling, induration has improved. LABS: Hemoglobin 13.8, white count of 10, BUN of 7, creatinine 0.40. DIAGNOSTIC IMPRESSION AND PLAN: Patient with right medial thigh abscess, status post surgical I and D, but no significant purulence was noticed or drainage. Culture has been pending so far. Currently covered with zinc to continue waiting for the culture to finalize to determine discharge antibiotics. Continue supportive care. MMODL / IJN: [id number] /
[2019-11-23 16:55] LABS: Glucose,Whole Blood 249 mg/dL (75-99)
--- NOTE | 2019-11-23 18:52 | PN ---
PROGRESS NOTE DATE OF SERVICE: 11/23/2019 This 53-year-old gentleman who was admitted with acute right groin abscess is on antibiotics. The patient also had uncontrolled blood sugars. Insulin has been adjusted. No chest pain. No palpitations. No fever. Currently the patient is on Levemir 30 units subcutaneously b.i.d. PHYSICAL EXAMINATION: Alert, oriented x3. Pulse 76, blood pressure 159/76, respiration 20, temperature 97.7, pulse ox 96% on room air. HEENT: Conjunctivae normal. NECK: No jugular venous distention. CARDIOVASCULAR SYSTEM: S1, S2 muffled. RESPIRATORY SYSTEM: Breath sounds diminished at the bases. No rhonchi. No crackles. ABDOMEN: Soft. LEGS: Right side infection, status post incision and drainage. LABS: CBC within normal limits. Sodium 136. Glucose 195. ASSESSMENT: 1. Acute right groin abscess with failure of outpatient treatment, status post incision and drainage, with possible early sepsis, present on admission. 2. Diabetes mellitus, type 2, new onset with hyperglycemia. 3. Hyponatremia. 4. Increased white count. 5. Increased AST and ALT with mild hepatitis. 6. Increased alkaline phosphatase. 7. Obesity with body mass index of 38.4. 8. History of dental pain. 9. History of cholecystectomy. 10.Remote history of nicotine dependence, continued and ongoing. 11.FULL CODE. RECOMMENDATIONS AND DISCUSSION: I recommend to continue current medications, continue with the monitoring, symptomatic treatment. Otherwise, repeat labs. Wait for the final cultures. Increase the dose of Levemir. Monitor blood sugars closely. Guarded prognosis. Further recommendations to follow. MMODL / IJN: [id number] /
[2019-11-23 20:06] LABS: Glucose,Whole Blood 280 mg/dL (75-99)
[2019-11-23] MEDS: HYDROcodone/APAP 5-325MG 1 EACH TAB PO PRN (20:55)
[2019-11-23] MEDS ORDERED: INSULIN DETEMIR (LEVEMIR) 100 UNIT/ML SYR SQ SCH (21:00)
[2019-11-24 02:01] LABS: Glucose,Whole Blood 212 mg/dL (75-99)
[2019-11-24] MEDS ORDERED: VANCOMYCIN TROUGH DUE 1 EACH MISC MISCELLANE ONE (04:00)
[2019-11-24 04:18] LABS: Basophils # (A) 0.1 k/uL (0-0.2); Basophils % (A) 1 %; Eosinophils # (A) 0.3 k/uL (0-0.7); Eosinophils % (A) 3 %; HCT 40.4 % (39.0-53.0); HGB 12.8 gm/dL (13.0-17.5); Lymphocytes % (A) 20 %; MCH 28.9 pg (25.0-35.0); MCHC 31.6 g/dL (31.0-37.0); MCV 91.4 fL (80.0-100.0); Mean Platelet Volume 7.5; Monocytes # (A) 0.8 k/uL (0-1.0); Monocytes % (A) 8 %; Neutrophils # (A) 6.4 k/uL (1.3-7.7); Neutrophils % (A) 66 %; Platelet Count 328 k/uL (150-450); RBC 4.42 m/uL (4.30-5.90); WBC 9.8 k/uL (3.8-10.6)
[2019-11-24 04:24] LABS: African American GFR (CKD) >90 (>60 ml/min/1.73 sqM); Anion Gap 7 mmol/L; Blood Urea Nitrogen 6 mg/dL (9-20); Calcium 9.1 mg/dL (8.4-10.2); Carbon Dioxide 20 mmol/L (22-30); Chloride 109 mmol/L (98-107); Glucose 182 mg/dL (74-99); Non-African American GFR(CKD) >90 (>60 ml/min/1.73 sqM); Potassium 4.1 mmol/L (3.5-5.1); Sodium 136 mmol/L (137-145)
[2019-11-24] MEDS: VANCOMYCIN 2,000 MG in SODIUM CHLORIDE 0.9% 500 ML 500 ML IVPB SCH ×2 (05:57→12:10)
[2019-11-24 06:50] LABS: Glucose,Whole Blood 180 mg/dL (75-99)
[2019-11-24] MEDS: INSULIN ASPART (NovoLOG) 100 UNIT/ML VIAL SQ SCH ×2 (07:26→12:10)
[2019-11-24] MEDS: metFORMIN 500 MG TAB PO SCH (07:26)
[2019-11-24] MEDS: ENOXAPARIN 40 MG/0.4 ML SYRINGE SQ SCH (07:26)
[2019-11-24] MEDS: INSULIN DETEMIR (LEVEMIR) 100 UNIT/ML SYR SQ SCH (07:26)
[2019-11-24] MEDS: NICOTINE 14MG/24HR PATCH TRANSDERM SCH (07:27)
[2019-11-24] MEDS: MULTIVITAMINS, THERA 1 EACH TAB PO SCH (07:27)
[2019-11-24 07:32] VITALS: BP 159/81; PULSE 64; RESP 16; TEMP 98.1
[2019-11-24] MEDS: ACETAMINOPHEN TAB 325 MG TAB PO PRN (09:13)
[2019-11-24] MEDS: CEFEPIME 2 GM in SODIUM CHLORIDE 0.9% 100 ML IVPB SCH (09:14)
[2019-11-24 11:14] LABS: Glucose,Whole Blood 157 mg/dL (75-99)
--- NOTE | 2019-11-24 11:54 | P.PN ---
Subjective Progress Note Date: 11/24/19 CHIEF COMPLAINT: Abscess right thigh HISTORY OF PRESENT ILLNESS: Patient is status post drainage of right upper thigh abscess with cellulitis and placement of [place] drain with Dr. Bocanegra performed on 11/21/2019. Pain is tolerable. WBC 9.8. Cultures negative. PHYSICAL EXAM: VITAL SIGNS: Reviewed GENERAL: Well-developed in no acute distress. HEENT: No sclera icterus. Extraocular movements grossly intact. Moist buccal mucosa. Head is atraumatic, normocephalic. Hears conversational speech. No nasal drainage. NECK: Supple without lymphadenopathy. CHEST: Non-labored respirations and equal bilateral excursions. CARDIOVASCULAR: Regular rate with regular rhythm. Palpable 2+ radial pulses. ABDOMEN: Soft. Nondistended. Nontender. MUSCULOSKELETAL: No clubbing or cyanosis. NEUROLOGIC: No focal or lateralizing signs. Cranial nerves II through XII grossly intact. PSYCH: Appropriate affect. Alert and oriented to person, place and time. SKIN: Well perfused. Good skin turgor. Dressing to right thigh clean dry intact. ASSESSMENT: 1. Complicated right groin abscess with cellulitis 2. New uncontrolled hyperglycemia 3. Leukocytosis 4. Tobacco use 5. Hyponatremia 6. Elevated LFTs 7. Lack of general medical care PLAN: -Antibiotics per ID -Stable for discharge home today per Dr. Bocanegra. WIll defer to internal medicine -Patient to follow up next week for removal of [place] drain Nurse practitioner note has been reviewed by physician. Signing provider agrees with the documented findings, assessment, and plan of care. Objective - Vital Signs Vital signs: Vital Signs Temp 98.1 F 11/24/19 07:00 Pulse 64 11/24/19 07:00 Resp 16 11/24/19 07:00 BP 159/81 11/24/19 07:00 Pulse Ox 97 11/24/19 07:00 Intake & Output 11/23/19 11/24/19 11/24/19 18:59 06:59 18:59 Intake Total 540 250 Balance 540 250 Intake: Oral 540 250 Other: Voiding Method Toilet Toilet # Voids 3 2 - Labs CBC & Chem 7: 11/24/19 04:01 11/24/19 04:01 Labs: Abnormal Lab Results - Last 24 Hours (Table) 11/23/19 11/23/19 11/24/19 Range/Units 16:53 20:05 01:59 Hgb (13.0-17.5) gm/dL Sodium (137-145) mmol/L Chloride (98-107) mmol/L Carbon Dioxide (22-30) mmol/L BUN (9-20) mg/dL Creatinine (0.66-1.25) mg/dL Glucose (74-99) mg/dL POC Glucose (mg/dL) 249 H 280 H 212 H (75-99) mg/dL 11/24/19 11/24/19 11/24/19 Range/Units 04:01 04:01 06:48 Hgb 12.8 L (13.0-17.5) gm/dL Sodium 136 L (137-145) mmol/L Chloride 109 H (98-107) mmol/L Carbon Dioxide 20 L (22-30) mmol/L BUN 6 L (9-20) mg/dL Creatinine 0.43 L (0.66-1.25) mg/dL Glucose 182 H (74-99) mg/dL POC Glucose (mg/dL) 180 H (75-99) mg/dL 11/24/19 Range/Units 11:13 Hgb (13.0-17.5) gm/dL Sodium (137-145) mmol/L Chloride (98-107) mmol/L Carbon Dioxide (22-30) mmol/L BUN (9-20) mg/dL Creatinine (0.66-1.25) mg/dL Glucose (74-99) mg/dL POC Glucose (mg/dL) 157 H (75-99) mg/dL Microbiology - Last 24 Hours (Table) 11/21/19 04:21 Blood Culture - Preliminary Blood No Growth after 72 hours 11/21/19 12:45 Anaerobic Culture - Preliminary Thigh - Right 11/21/19 12:45 Gram Stain - Final Thigh - Right Wound Culture - Final
[2019-11-24 14:08] VITALS: BMI 38.3
--- NOTE | 2019-11-24 15:05 | PN ---
PROGRESS NOTE DATE OF SERVICE: 11/24/2019 REASON FOR FOLLOWUP: Right medial thigh abscess, cellulitis. INTERVAL HISTORY: The patient is currently afebrile. Patient is feeling better. Breathing comfortably. Overall pain and discomfort to the right medial thigh has improved. Denies any chest pain or shortness of breath. No nausea, vomiting or abdominal pain. No diarrhea and wants to go home. PHYSICAL EXAMINATION: Blood pressure 159/81 with a pulse of 64, temperature 98.1, he is 97% on room air. General description is a middle-aged male, lying in bed in no distress. RESPIRATORY SYSTEM: Unlabored breathing, clear to auscultation anteriorly. HEART: S1, S2. Regular rate and rhythm. Right mid thigh induration and swelling have improved. LABS: Hemoglobin is 12.8, white count of 9.8, BUN of 6, creatinine 0.43. Wound cultures came back negative. DIAGNOSTIC IMPRESSION AND PLAN: Patient with right medial thigh abscess, cellulitis, status post drainage. Culture has been negative so far. We will switch antibiotic therapy to oral Keflex 500 mg p.o. q.6 hours for 10 days, prescription sent to pharmacy. Follow up in the office in one week. If any worsening swelling, redness, cough, discharge, redness, . MMODL / IJN: [id number] /
--- NOTE | 2019-11-24 17:53 | P.DS ---
Providers Date of admission: 11/21/19 06:28 Attending physician: oRseline Cuenca Consults: 11/21/19 06:28 Consult Physician Stat Consulting Provider: Elizabeth Bocanegra Consult Reason/Comments: abscess Do you want consulting provider notified?: Already Contacted 11/21/19 14:25 Consult Physician Routine Consulting Provider: Bryan Hernandez Consult Reason/Comments: groin abscess Do you want consulting provider notified?: Yes Primary care physician: Stated None Hospital Course: patient is admitted for right groin abscess which was surgically drained and patient is being discharged on ceftezole and. Patient has new-onset diabetes mellitus patient was started on metformin and will require insulin as well because of lack of insurance patient will be discharged on 70/30 NPH/regular insulin 35 units twice a day and patient will check his blood sugars twice a day patient will be deferred to primary care physician next and patient was hyponatremic which appears to be pseudohyponatremia from hyperglycemia which improved at this time. PHYSICAL EXAMINATION: GENERAL: The patient is alert and oriented x3, not in any acute distress. Well developed, well nourished. HEENT: Pupils are round and equally reacting to light. EOMI. No scleral icterus. No conjunctival pallor. Normocephalic, atraumatic. No pharyngeal erythema. No thyromegaly. CARDIOVASCULAR: S1 and S2 present. No murmurs, rubs, or gallops. PULMONARY: Chest is clear to auscultation, no wheezing or crackles. ABDOMEN: Soft, nontender, nondistended, normoactive bowel sounds. No palpable organomegaly. MUSCULOSKELETAL: No joint swelling or deformity. EXTREMITIES: No cyanosis, clubbing, or pedal edema. NEUROLOGICAL: Gross neurological examination did not reveal any focal deficits. SKIN: No rashes. for rest of the chronic medical problems and hospitalization course please refer to progress note from Dr. Cuenca from yesterday. Patient Condition at Discharge: Stable Plan - Discharge Summary Discharge Rx Participant: Yes New Discharge Prescriptions: New Cephalexin [Keflex] 500 mg PO Q6HR #40 cap metFORMIN HCL [Glucophage] 1,000 mg PO BID-W/MEALS #30 tab Insulin NPH/Reg Insulin 70/30 [humuLIN 70/30 VIAL] 100 unit SQ AC-BID #3 Continue Fish Oil/Dha/Epa [Fish Oil 1,200 mg Fish Oil] 1 cap PO DAILY Ibuprofen 400 mg PO Q8H Acetaminophen [Tylenol Extra Strength] 1,000 mg PO Q6H PRN PRN Reason: Pain Multivitamins, Thera [Multivitamin (formulary)] 1 tab PO DAILY Discharge Medication List Acetaminophen [Tylenol Extra Strength] 1,000 mg PO Q6H PRN 11/21/19 [History] Fish Oil/Dha/Epa [Fish Oil 1,200 mg Fish Oil] 1 cap PO DAILY 11/21/19 [History] Ibuprofen 400 mg PO Q8H 11/21/19 [History] Multivitamins, Thera [Multivitamin (formulary)] 1 tab PO DAILY 11/21/19 [History] Cephalexin [Keflex] 500 mg PO Q6HR #40 cap 11/24/19 [Rx] Insulin NPH/Reg Insulin 70/30 [humuLIN 70/30 VIAL] 100 unit SQ AC-BID #3 11/24/19 [Rx] metFORMIN HCL [Glucophage] 1,000 mg PO BID-W/MEALS #30 tab 11/24/19 [Rx] Follow up Appointment(s)/Referral(s): [facility] [NON-STAFF] - As Needed (diabetic supplies) Elizabeth Bocanegra MD [STAFF PHYSICIAN] - 12/01/19 10:00 am None,Stated [Primary Care Provider] - 1-2 days (PLEASE ESTABLISH A PRIMARY CARE PROVIDER) Bryan Hernandez MD [STAFF PHYSICIAN] - 1 Week (OFFICE WILL CALL YOU WITH APPOINTMENT TIME AND DATE. ) Patient Instructions/Handouts: Type 2 Diabetes in Adults: New Diagnosis (DC), Meal Planning with the Plate Method (GEN), Abscess Incision and Drainage (DC) Activity/Diet/Wound Care/Special Instructions: DRAINS WILL BE REMOVED IN DR NEWTON OFFICE. CHANGE DRESSING TO RIGHT GROIN EVERY OTHER DAY, OR NEEDED IF DRESSING IS SOILED. Discharge Disposition: HOME SELF-CARE
== END 2019-11-24 13:53 | disposition home or self-care (01) ==
LOC: EC 03:37 → 4SSUR 06:28
PROVIDERS: ADMIT Hospitalist; ATTEND Hospitalist
DX: L02.415 Cutaneous abscess of right lower limb (principal); E11.65 Type 2 diabetes mellitus with hyperglycemia; E66.01 Morbid (severe) obesity due to excess calories; E87.1 Hypo-osmolality and hyponatremia; F17.200 Nicotine dependence, unspecified, uncomplicated; I11.9 Hypertensive heart disease without heart failure; I44.60 Unspecified fascicular block; I45.10 Unspecified right bundle-branch block; K75.9 Inflammatory liver disease, unspecified; Z68.38 Body mass index [BMI] 38.0-38.9, adult; Z79.4 Long term (current) use of insulin; Z83.3 Family history of diabetes mellitus; Z90.49 Acquired absence of other specified parts of digestive tract; R74.8 Abnormal levels of other serum enzymes; Z11.59 Encounter for screening for other viral diseases; Z79.1 Long term (current) use of non-steroidal anti-inflammatories (NSAID); Z79.899 Other long term (current) drug therapy
CPT/HCPCS: 96365; 96366; 96367; 99285; 36415; 93005; 80053; 80048 ×3; 83605; 85025 ×4; 80202 ×2; 85610; 85730; 81003; 87040; 87070; 87205; 87075; 83036; 72193; 10061; G0378 ×4; U0003; S4990; J2543; J2250; J3370 ×4; J2270 ×2; J1650 ×3; J0696; J0692 ×4; J3010; J2704; Q9967

== ENCOUNTER 2020-02-26 20:54 | Inpatient (IN) | payer OTHER ==
[2020-02-26] MEDS ORDERED: MORPHINE SULFATE 2 MG/ML SYRINGE IVP STA (21:43)
[2020-02-26 22:22] LABS: ALT 31 U/L (4-49); AST 26 U/L (17-59); African American GFR (CKD) >90 (>60 ml/min/1.73 sqM); Albumin 4.1 g/dL (3.5-5.0); Alkaline Phosphatase 81 U/L (38-126); Anion Gap 7 mmol/L; Blood Urea Nitrogen 16 mg/dL (9-20); Calcium 9.8 mg/dL (8.4-10.2); Carbon Dioxide 22 mmol/L (22-30); Chloride 108 mmol/L (98-107); Glucose 183 mg/dL (74-99); Non-African American GFR(CKD) >90 (>60 ml/min/1.73 sqM); Potassium 4.5 mmol/L (3.5-5.1); Sodium 137 mmol/L (137-145); Total Bilirubin 0.4 mg/dL (0.2-1.3); Total Protein 6.7 g/dL (6.3-8.2)
[2020-02-26 22:30] LABS: Basophils # (A) 0.1 k/uL (0-0.2); Basophils % (A) 1 %; Eosinophils # (A) 0.3 k/uL (0-0.7); Eosinophils % (A) 2 %; HCT 44.1 % (39.0-53.0); HGB 14.1 gm/dL (13.0-17.5); Lymphocytes % (A) 22 %; MCH 29.4 pg (25.0-35.0); MCHC 31.9 g/dL (31.0-37.0); MCV 91.9 fL (80.0-100.0); Monocytes # (A) 0.8 k/uL (0-1.0); Monocytes % (A) 6 %; Neutrophils # (A) 9.2 k/uL (1.3-7.7); Neutrophils % (A) 68 %; Platelet Count 394 k/uL (150-450); RBC 4.79 m/uL (4.30-5.90); RDW 14.4 % (11.5-15.5); WBC 13.6 k/uL (3.8-10.6)
--- NOTE | 2020-02-26 22:48 | XR ---
EXAMINATION TYPE: XR lumbar spine 2 or 3V DATE OF EXAM: 02/26/2020 COMPARISON: NONE HISTORY: Back pain TECHNIQUE: 3 views FINDINGS: The lumbar vertebra have normal alignment. There is narrowing of the L4-5 disc space. Abdom inal aorta is atheromatous. The sacroiliac joints appear intact. There is no compression fracture. I see no focal bone destruction. IMPRESSION: Spondylosis mainly at L4-5. No fracture seen.
--- NOTE | 2020-02-26 22:49 | XR ---
EXAMINATION TYPE: XR Hip Complete RT DATE OF EXAM: 02/26/2020 COMPARISON: NONE HISTORY: Hip pain TECHNIQUE: 2 views FINDINGS: I see no fracture nor dislocation. Hip joint space is fairly normal. Sacroiliac joint appea rs intact. IMPRESSION: Negative right hip exam.
[2020-02-26] MEDS ORDERED: PANTOPRAZOLE 40 MG/10 ML VIAL IVP STA (23:22)
[2020-02-26] MEDS ORDERED: NALOXONE 0.4 MG/ML 1 ML VIAL IV PRN (23:22)
[2020-02-26] MEDS ORDERED: HYDROmorphone 0.5 MG/0.5 ML SYRINGE IVP STA (23:24)
--- NOTE | 2020-02-26 23:24 | ED ---
GI Bleed HPI - General Chief complaint: GI Bleed Stated complaint: leg pain, Blood in urine/stool Time Seen by Provider: 02/26/20 21:19 Source: patient Mode of arrival: ambulatory Limitations: no limitations - History of Present Illness Initial comments: 54-year-old male presenting for 2 separate complaints. Patient states that he presented today because he had bloody bowel movements beginning at 4:30 PM this afternoon. Patient denies any history of diverticulosis. He states he's never had a colonoscopy. He stated he does not have any abdominal pain is due to 2 subsequent Episodes of diarrhea which were completely blood. He states that he does not feel lightheaded he denies any cold intolerance denies any palpitations or sensation that his heart is racing he denies any lightheadedness. Patient denies chest pain, vomiting, shortness of breath. Patient denies fevers. Patient does endorse that he had right sided sciatica. Patient states that he normally spirits his pain that radiates down his left buttock P however he states the past 6 days has been waiting down his right buttock down to just below the knee. Patient denies any weakness or sensation deficits he states is a tingling sensation at time of the posterior right thigh. Patient denies any bladder incontinence or urinary retention. He denies loss of bowel control. Patient denies any erectile dysfunction. Patient denies IV drug use, history of cancer or recent falls or trauma to the back. Patient states it feels similar to the left-sided leg and back pain that he's experienced in the past. Patient denies additional complaints upon arrival patient appears nontoxic moving well ambulatory in no acute distress. Blood pressure within acceptable limits, heart rate is not elevated - Related Data Home Medications Medication Instructions Recorded Confirmed Acetaminophen [Tylenol Extra 1,000 mg PO Q6H PRN 11/21/19 11/21/19 Strength] Fish Oil/Dha/Epa [Fish Oil 1,200 1 cap PO DAILY 11/21/19 11/21/19 mg Fish Oil] Ibuprofen 400 mg PO Q8H 11/21/19 11/21/19 Multivitamins, Thera [Multivitamin 1 tab PO DAILY 11/21/19 11/21/19 (formulary)] Previous Rx's Medication Instructions Recorded Cephalexin [Keflex] 500 mg PO Q6HR #40 cap 11/24/19 Insulin NPH/Reg Insulin 70/30 100 unit SQ AC-BID #3 11/24/19 [humuLIN 70/30 VIAL] metFORMIN HCL [Glucophage] 1,000 mg PO BID-W/MEALS #30 tab 11/24/19 Allergies Allergy/AdvReac Type Severity Reaction Status Date / Time No Known Allergies Allergy Verified 02/26/20 21:12 Review of Systems ROS Statement: Those systems with pertinent positive or pertinent negative responses have been documented in the HPI. ROS Other: All systems not noted in ROS Statement are negative. Past Medical History Past Medical History: Diabetes Mellitus Additional Past Medical History / Comment(s): dental pain History of Any Multi-Drug Resistant Organisms: None Reported Past Surgical History: Cholecystectomy, Tonsillectomy Past Anesthesia/Blood Transfusion Reactions: No Reported Reaction Past Psychological History: No Psychological Hx Reported Smoking Status: Current every day smoker Past Alcohol Use History: Occasional Past Drug Use History: None Reported - Past Family History Mother Family Medical History: Diabetes Mellitus General Exam - General Exam Comments Initial Comments: General: The patient is awake and alert, in no distress Eye: +3 mm pupils are equal, round and reactive to light, extra-ocular movements are intact. No nystagmus. There is normal conjunctiva bilaterally. No signs of icterus. Ears, nose, mouth and throat: There are moist mucous membranes and no oral lesions. Neck: The neck is supple, there is no tenderness or JVD. Cardiovascular: There is a regular rate and rhythm. No murmur, rub or gallop is appreciated. Respiratory: Lungs are clear to auscultation, respirations are non-labored, breath sounds are equal. No wheezes, stridor, rales, or rhonchi. Gastrointestinal: Soft, non-distended, non-tender abdomen without masses or organomegaly noted. There is no rebound or guarding present. Musculoskeletal: Normal inspection of the cervical thoracic and lumbar spine. There is some paraspinal tenderness of the lumbar spinemidline tenderness. Patient is pain to palpation of the mid buttock no skin changes. Normal ROM, of the LE b/l. Strength 5/5 of the LE b/l. Sensation intact of the LE b/l including the saddle region. Radial and DP pulses equal bilaterally 2+. Neurological: A&O x 3. CN II-XII intact grossly, There are no obvious motor or sensory deficits. Coordination appears grossly intact. Speech is normal. Skin: Skin is warm and dry and no rashes or lesions are noted. Psychiatric: Cooperative, appropriate mood & affect, normal judgment. Limitations: no limitations Course Vital Signs 02/26/20 02/26/20 02/26/20 21:08 22:05 23:00 Temperature 98.7 F Pulse Rate 85 86 86 Respiratory 18 18 18 Rate Blood Pressure 149/89 147/87 140/81 O2 Sat by Pulse 95 96 96 Oximetry 02/27/20 00:02 Temperature Pulse Rate 84 Respiratory 17 Rate Blood Pressure 130/76 O2 Sat by Pulse 95 Oximetry - Reevaluation(s) Reevaluation #1: Pt complaining of pain to the LLQ, CT abdomen pelvic obtainted. 02/27/20 Medical Decision Making - Medical Decision Making HgB stable. No pain upon initial history taking. Patient has no recent physical examination concerning for cauda equina. Patietn CT concerning for obstruction- partial vs ileus. Patient has diverticulosis, no thinners. Patient will be admitted for monitoring serial CBCs and GI/surgical consultation. Patient is agreeable to admission> Dr Rodríguez agreeable to admission and care plan. Dr. Jeffery accepted admission. - Lab Data Result diagrams: 02/26/20 21:57 02/26/20 21:57 Lab Results 02/26/20 02/26/20 02/26/20 Range/Units 21:57 21:57 21:57 WBC 13.6 H (3.8-10.6) k/uL RBC 4.79 (4.30-5.90) m/uL Hgb 14.1 (13.0-17.5) gm/dL Hct 44.1 (39.0-53.0) % MCV 91.9 (80.0-100.0) fL MCH 29.4 (25.0-35.0) pg MCHC 31.9 (31.0-37.0) g/dL RDW 14.4 (11.5-15.5) % Plt Count 394 (150-450) k/uL Neutrophils % 68 % Lymphocytes % 22 % Monocytes % 6 % Eosinophils % 2 % Basophils % 1 % Neutrophils # 9.2 H (1.3-7.7) k/uL Lymphocytes # 3.0 (1.0-4.8) k/uL Monocytes # 0.8 (0-1.0) k/uL Eosinophils # 0.3 (0-0.7) k/uL Basophils # 0.1 (0-0.2) k/uL APTT 24.7 (22.0-30.0) sec Sodium 137 (137-145) mmol/L Potassium 4.5 (3.5-5.1) mmol/L Chloride 108 H (98-107) mmol/L Carbon Dioxide 22 (22-30) mmol/L Anion Gap 7 mmol/L BUN 16 (9-20) mg/dL Creatinine 0.78 (0.66-1.25) mg/dL Est GFR (CKD-EPI)AfAm >90 (>60 ml/min/1.73 sqM) Est GFR (CKD-EPI)NonAf >90 (>60 ml/min/1.73 sqM) Glucose 183 H (74-99) mg/dL Calcium 9.8 (8.4-10.2) mg/dL Total Bilirubin 0.4 (0.2-1.3) mg/dL AST 26 (17-59) U/L ALT 31 (4-49) U/L Alkaline Phosphatase 81 (38-126) U/L Troponin I (0.000-0.034) ng/mL Total Protein 6.7 (6.3-8.2) g/dL Albumin 4.1 (3.5-5.0) g/dL Stool Occult Blood (Negative) Blood Type Blood Type Confirm Blood Type Recheck Bld Type Recheck Status Antibody Screen Spec Expiration Date 02/26/20 02/26/20 02/26/20 Range/Units 21:57 22:27 22:32 WBC (3.8-10.6) k/uL RBC (4.30-5.90) m/uL Hgb (13.0-17.5) gm/dL Hct (39.0-53.0) % MCV (80.0-100.0) fL MCH (25.0-35.0) pg MCHC (31.0-37.0) g/dL RDW (11.5-15.5) % Plt Count (150-450) k/uL Neutrophils % % Lymphocytes % % Monocytes % % Eosinophils % % Basophils % % Neutrophils # (1.3-7.7) k/uL Lymphocytes # (1.0-4.8) k/uL Monocytes # (0-1.0) k/uL Eosinophils # (0-0.7) k/uL Basophils # (0-0.2) k/uL APTT (22.0-30.0) sec Sodium (137-145) mmol/L Potassium (3.5-5.1) mmol/L Chloride (98-107) mmol/L Carbon Dioxide (22-30) mmol/L Anion Gap mmol/L BUN (9-20) mg/dL Creatinine (0.66-1.25) mg/dL Est GFR (CKD-EPI)AfAm (>60 ml/min/1.73 sqM) Est GFR (CKD-EPI)NonAf (>60 ml/min/1.73 sqM) Glucose (74-99) mg/dL Calcium (8.4-10.2) mg/dL Total Bilirubin (0.2-1.3) mg/dL AST (17-59) U/L ALT (4-49) U/L Alkaline Phosphatase (38-126) U/L Troponin I <0.012 (0.000-0.034) ng/mL Total Protein (6.3-8.2) g/dL Albumin (3.5-5.0) g/dL Stool Occult Blood (Negative) Blood Type A Positive Blood Type Confirm A Positive Blood Type Recheck No Previous Record Bld Type Recheck Status CABO Indicated Antibody Screen NEGATIVE Spec Expiration Date 02/29/2020 - 232602/26/20 Range/Units 22:48 WBC (3.8-10.6) k/uL RBC (4.30-5.90) m/uL Hgb (13.0-17.5) gm/dL Hct (39.0-53.0) % MCV (80.0-100.0) fL MCH (25.0-35.0) pg MCHC (31.0-37.0) g/dL RDW (11.5-15.5) % Plt Count (150-450) k/uL Neutrophils % % Lymphocytes % % Monocytes % % Eosinophils % % Basophils % % Neutrophils # (1.3-7.7) k/uL Lymphocytes # (1.0-4.8) k/uL Monocytes # (0-1.0) k/uL Eosinophils # (0-0.7) k/uL Basophils # (0-0.2) k/uL APTT (22.0-30.0) sec Sodium (137-145) mmol/L Potassium (3.5-5.1) mmol/L Chloride (98-107) mmol/L Carbon Dioxide (22-30) mmol/L Anion Gap mmol/L BUN (9-20) mg/dL Creatinine (0.66-1.25) mg/dL Est GFR (CKD-EPI)AfAm (>60 ml/min/1.73 sqM) Est GFR (CKD-EPI)NonAf (>60 ml/min/1.73 sqM) Glucose (74-99) mg/dL Calcium (8.4-10.2) mg/dL Total Bilirubin (0.2-1.3) mg/dL AST (17-59) U/L ALT (4-49) U/L Alkaline Phosphatase (38-126) U/L Troponin I (0.000-0.034) ng/mL Total Protein (6.3-8.2) g/dL Albumin (3.5-5.0) g/dL Stool Occult Blood Positive (Negative) Blood Type Blood Type Confirm Blood Type Recheck Bld Type Recheck Status Antibody Screen Spec Expiration Date Disposition Clinical Impression: Right hip pain, Low back pain, GI bleed Disposition: ADMITTED IP TO THIS [facility] Condition: Stable Is patient prescribed a controlled substance at d/c from ED?: No Time of Disposition: 23:24 Decision to Admit Reason: Admit from EC Decision Date: 02/26/20 Decision Time: 23:24
[2020-02-26] MEDS: SODIUM CHLORIDE 0.9% 1,000 ML IV SCH (23:34)
--- NOTE | 2020-02-27 00:10 | CT ---
EXAMINATION TYPE: CT abdomen pelvis w con DATE OF EXAM: 02/26/2020 COMPARISON: None HISTORY: pain in right buttcheek CT DLP: 2099.80 mGycm Automated exposure control for dose reduction was used. CONTRAST: Performed with IV Contrast, patient injected with 100 mL of Isovue 300. Images were obtained from the diaphragm to the floor the pelvis with IV contrast FINDINGS: Lung bases are clear. There is no pleural effusion. Heart size is normal. There is no pericardial eff usion. There is partly calcified 0.5 cm nodule in the right middle lobe consistent with old granuloma tous disease. There are clips from cholecystectomy. Liver shows no focal defect. Spleen stomach pancreas appear nor mal. The bile ducts are not dilated. There is 4.5 cm low-density left adrenal mass. Adjacent to this mass there is a second similar-appear ing mass anterior and inferior to the adrenal gland that measures 3 cm. Kidneys show satisfactory con trast opacification. There is no hydronephrosis. Delayed images show very little contrast in the mahnaz ecting systems. There is no retroperitoneal adenopathy. Ureters are not dilated. Bladder distends smo othly. There is prostatic calcification. There is no inguinal hernia. There are some sigmoid diverticula. There is no sign of diverticulitis. There is 1.5 cm umbilical her germán that contains fat. The appendix is medial and appears normal. There are some dilated loops of flu id-filled small bowel in the mid abdomen. These measure up to 3.5 cm. Large bowel is not dilated. There is no mesenteric edema. There is no ascites or free air. There is no intestinal wall thickening . Lumbar vertebra have normal alignment. There is narrowing of L3-4 and L4-5 disc spaces with vacuum di sc. There is mild lumbar dextroscoliosis. The bony pelvis is intact. Hip joints are intact. IMPRESSION: There are some dilated small bowel loops in the mid abdomen which could relate to ileus or partial me chanical obstruction. Sigmoid diverticulosis without diverticulitis. Bilobed left adrenal mass. Comparison with old exam would be helpful. Mild sigmoid diverticulosis without diverticulitis.
[2020-02-27] MEDS ORDERED: MORPHINE SULFATE 4 MG/ML SYRINGE IVP STA (00:18)
[2020-02-27] MEDS ORDERED: MORPHINE SULFATE 4 MG/ML SYRINGE IVP PRN (00:49)
--- NOTE | 2020-02-27 00:51 | P.HPIM ---
History of Present Illness H&P Date: 02/27/20 Patient was seen and evaluated in the emergency room at 12 AM on 02/26 The patient is a 54-year-old male with a PMH of type II DM who presented to the ED with complaints of bright red bloody stools that started this evening. The patient reports that he has never had such stools in the past, though has never had a colonoscopy. Reports that over the past few weeks he has been taking naproxen and ibuprofen every 6 hours due to his right-sided sciatica that has been acting up. He notes that he has had 4-5 grossly bloody such stools since around 4 PM today. Reported mild abdominal bloating though denied any focal pain. Also denied nausea vomiting. Reports intermittent 8 out of 10 right hip pain with associated numbness of the right thigh ongoing for the past few weeks. Denied radiation to the foot. Also denied weakness, urinary incontinence or hesitancy, or bowel incontinence. Denied cough, fever, chills, chest pain, shortness of breath, nausea, or vomiting. In the emergency room a CT abdomen pelvis revealed some dilated small bowel loops suspicious for ileus or partial obstruction, bilobed left adrenal mass, and mild sigmoid diverticulosis. Lumbar spine x-ray revealed spondylolysis at L4 to 5 with no fracture. Hip x-ray was unremarkable. Laboratory evaluation was reviewed and was remarkable for a WBC count of 13.6 with a glucose of 183 with a positive stool occult. Review of Systems Pertinent positives and negatives as discussed in HPI, a complete review of systems was performed and all other systems are negative. Past Medical History Past Medical History: Diabetes Mellitus Additional Past Medical History / Comment(s): dental pain History of Any Multi-Drug Resistant Organisms: None Reported Past Surgical History: Cholecystectomy, Tonsillectomy Past Anesthesia/Blood Transfusion Reactions: No Reported Reaction Past Psychological History: No Psychological Hx Reported Smoking Status: Current every day smoker Past Alcohol Use History: Occasional Past Drug Use History: None Reported - Past Family History Mother Family Medical History: Diabetes Mellitus Medications and Allergies Home Medications Medication Instructions Recorded Confirmed Type Acetaminophen [Tylenol Extra 1,000 mg PO Q6H PRN 11/21/19 11/21/19 History Strength] Fish Oil/Dha/Epa [Fish Oil 1,200 1 cap PO DAILY 11/21/19 11/21/19 History mg Fish Oil] Ibuprofen 400 mg PO Q8H 11/21/19 11/21/19 History Multivitamins, Thera [Multivitamin 1 tab PO DAILY 11/21/19 11/21/19 History (formulary)] Cephalexin [Keflex] 500 mg PO Q6HR #40 cap 11/24/19 Rx Insulin NPH/Reg Insulin 70/30 100 unit SQ AC-BID #3 11/24/19 Rx [humuLIN 70/30 VIAL] metFORMIN HCL [Glucophage] 1,000 mg PO BID-W/MEALS #30 tab 11/24/19 Rx Allergies Allergy/AdvReac Type Severity Reaction Status Date / Time No Known Allergies Allergy Verified 02/26/20 21:12 Physical Exam Vitals: Vital Signs Temp Pulse Resp BP Pulse Ox 02/26/20 21:08 98.7 F 85 18 149/89 95 Intake and Output 02/26/20 02/26/20 02/27/20 14:59 22:59 06:59 Other: Weight 117.934 kg General: non toxic, in moderate distress due to hip pain, appears at stated age, obese Derm: no unusual rashes/lesions no unusual ecchymoses, warm, dry Head: atraumatic, normocephalic, symmetric Eyes: EOMI, no lid lag, anicteric sclera, pupils equal round reactive to light ENT: Nose and ears atraumatic, no thrush, no pharyngeal erythema Neck: No thyromegaly, no cervical lymphadenopathy, trachea midline, supple Mouth: no lip lesion, mucus membranes moist Cardiovascular: S1S2 reg, no murmur, positive posterior tibial pulse bilateral, no edema, capillary refill less than 2 seconds Lungs: CTA bilateral, no rhonchi, no rales , no accessory muscle use Abdominal: soft, nontender to palpation, no guarding, no appreciable organomegaly, normal bowel sounds Ext: no gross muscle atrophy, muscle strength 5 out of 5 in all 4 extremities grossly with strength 5 out of 5 of right lower extremity proximally and distally, no contractures, no spinal, paraspinal, or hip tenderness on palpation Neuro: CN II-XI grossly intact, light touch intact all 4 extremities, finger to nose within normal limits, SLR positive on RLE Psych: Alert, oriented, appropriate affect Results CBC & Chem 7: 02/26/20 21:57 02/26/20 21:57 Labs: Abnormal Lab Results - Last 24 Hours (Table) 02/26/20 02/26/20 Range/Units 21:57 21:57 WBC 13.6 H (3.8-10.6) k/uL Neutrophils # 9.2 H (1.3-7.7) k/uL Chloride 108 H (98-107) mmol/L Glucose 183 H (74-99) mg/dL Assessment and Plan Plan: Hematochezia, suspected secondary to diverticulosis versus peptic ulcer disease in setting of recent NSAID use -GI consult -Monitor CBC -Nothing by mouth after midnight -Protonix Right hip and thigh pain with numbness, suspected sciatica -Obtain neurology consult -Obtain MRI as patient notes he has never had this evaluated previously -Neurochecks -Physical therapy consult -Pain control Chronic conditions: Type II DM -Check A1c -Lispro insulin sliding scale blood glucose monitoring -Levemir 10 units daily at bedtime Leukocytosis -No signs of active infection at this time -Likely secondary to acute stress -Monitor for now DVT prophylaxis -IPCD's The patient is admitted with an anticipated greater than than 2 midnight stay for evaluation of GI bleeding. CODE STATUS: Full Code Discussed with: Patient Anticipated discharge date: 2-[address]: Home A total of 40 minutes was spent on the care of this complex patient more than 50% of the time was spent in counseling and care coordination.
[2020-02-27] MEDS ORDERED: GABAPENTIN 400 MG CAP PO STA (04:18)
[2020-02-27] MEDS: HYDROmorphone 0.5 MG/0.5 ML SYRINGE IVP PRN ×3 (04:31→12:27)
[2020-02-27 06:27] LABS: Glucose,Whole Blood 177 mg/dL (75-99)
[2020-02-27] MEDS: INSULIN ASPART (NovoLOG) 100 UNIT/ML VIAL SQ SCH ×5 (07:11→20:59)
[2020-02-27 07:39] LABS: HCT 38.1 % (39.0-53.0); HGB 12.6 gm/dL (13.0-17.5); MCHC 33.1 g/dL (31.0-37.0); MCV 93.7 fL (80.0-100.0); Mean Platelet Volume 6.7; Platelet Count 378 k/uL (150-450); RBC 4.07 m/uL (4.30-5.90); RDW 14.2 % (11.5-15.5); WBC 15.1 k/uL (3.8-10.6)
[2020-02-27 07:55] LABS: African American GFR (CKD) >90 (>60 ml/min/1.73 sqM); Anion Gap 2 mmol/L; Blood Urea Nitrogen 17 mg/dL (9-20); Calcium 8.9 mg/dL (8.4-10.2); Carbon Dioxide 24 mmol/L (22-30); Chloride 110 mmol/L (98-107); Glucose 177 mg/dL (74-99); Non-African American GFR(CKD) >90 (>60 ml/min/1.73 sqM); Potassium 5.3 mmol/L (3.5-5.1); Sodium 136 mmol/L (137-145)
[2020-02-27] MEDS ORDERED: HYDROcodone/APAP 5-325MG 1 EACH TAB PO PRN (09:23)
--- NOTE | 2020-02-27 10:15 | P.CNOR ---
<Jackie Zacarias Soco - Last Filed: 02/27/20 10:13> History of Present Illness - HPI Consult date: 02/27/20 History of present illness: This is a 54-year-old male who is admitted for management of a GI bleed. Orthopedics is consulted due to complaints of low back and right hip pain. Patient is seen and evaluated at bedside today. Patient states that his symptoms of back and right hip pain started one week ago and have gradually gotten worse. Patient denies any injury. Patient localizes his pain to the back of the right hip and reports numbness in the right leg as well. Patient states that he sometimes has pain in the left leg as well. Patient denies any change in bowel or bladder function or any saddle anesthesia. Patient's past medical history significant for type 2 diabetes mellitus. Patient denies any fever or chills. Review of Systems See HPI. Past Medical History Past Medical History: Diabetes Mellitus Additional Past Medical History / Comment(s): dental pain History of Any Multi-Drug Resistant Organisms: None Reported Past Surgical History: Cholecystectomy, Tonsillectomy Past Anesthesia/Blood Transfusion Reactions: No Reported Reaction Past Psychological History: No Psychological Hx Reported Smoking Status: Current every day smoker Past Alcohol Use History: Occasional Past Drug Use History: None Reported - Past Family History Mother Family Medical History: Diabetes Mellitus Medications and Allergies Home Medications Medication Instructions Recorded Confirmed Type No Known Home Medications 02/27/20 02/27/20 History Allergies Allergy/AdvReac Type Severity Reaction Status Date / Time No Known Allergies Allergy Verified 02/27/20 10:40 Physical Examination On exam patient is lying in bed in no acute distress. Patient is alert and oriented 3. Patient is able to go from lying down to sitting up with ease. Patient has full range of motion of bilateral upper and lower extremities. There is mild tenderness to palpation over the right side lumbar paraspinal muscles. There is no step-off or deformity upon palpation of the cervical, thoracic or lumbar spine. There is no erythema, swelling or ecchymosis. Skin is intact. 5/5 strength in bilateral lower extremities. Sensation intact. Results X-rays of the right hip are negative for any fracture, dislocation or significant arthritis. X-rays of the lumbar spine show spondylosis of L4-L5. - Labs Labs: Abnormal Lab Results - Last 24 Hours (Table) 02/26/20 02/26/20 02/27/20 Range/Units 21:57 21:57 06:22 WBC 13.6 H (3.8-10.6) k/uL RBC (4.30-5.90) m/uL Hgb (13.0-17.5) gm/dL Hct (39.0-53.0) % Neutrophils # 9.2 H (1.3-7.7) k/uL Sodium (137-145) mmol/L Potassium (3.5-5.1) mmol/L Chloride 108 H (98-107) mmol/L Glucose 183 H (74-99) mg/dL POC Glucose (mg/dL) 177 H (75-99) mg/dL 02/27/20 02/27/20 Range/Units 07:25 07:25 WBC 15.1 H (3.8-10.6) k/uL RBC 4.07 L (4.30-5.90) m/uL Hgb 12.6 L (13.0-17.5) gm/dL Hct 38.1 L (39.0-53.0) % Neutrophils # (1.3-7.7) k/uL Sodium 136 L (137-145) mmol/L Potassium 5.3 H (3.5-5.1) mmol/L Chloride 110 H (98-107) mmol/L Glucose 177 H (74-99) mg/dL POC Glucose (mg/dL) (75-99) mg/dL H & H 02/26/20 02/27/20 Range/Units 21:57 07:25 Hgb 14.1 12.6 L (13.0-17.5) gm/dL Hct 44.1 38.1 L (39.0-53.0) % Result Diagrams: 02/27/20 07:25 02/27/20 07:25 Assessment and Plan (1) GI bleed Current Visit: Yes Status: Acute Code(s): K92.2 - GASTROINTESTINAL HEMORRHAGE, UNSPECIFIED SNOMED Code(s): 57026245 (2) Low back pain Current Visit: Yes Status: Acute Code(s): M54.5 - LOW BACK PAIN SNOMED Code(s): 016575541 (3) Right hip pain Current Visit: Yes Status: Acute Code(s): M25.551 - PAIN IN RIGHT HIP SNOMED Code(s): 88413473 Plan: 1. An MRI of the lumbar spine is pending. 2. Patient has an elevated white blood cell count 15.1. Patient is afebrile. 3. Continue pain control per internal medicine. Patient is unable to utilize NSAIDs due to GI bleed. 4. Further recommendations pending MRI results. Will continue to follow the patient closely. <Maya Rosenbaum - Last Filed: 02/27/20 16:03> Physical Examination Osteopathic Statement: *. No significant issues noted on an osteopathic structural exam other than those noted in the History and Physical/Consult. Results - Labs Labs: Abnormal Lab Results - Last 24 Hours (Table) 02/26/20 02/26/20 02/27/20 Range/Units 21:57 21:57 06:22 WBC 13.6 H (3.8-10.6) k/uL RBC (4.30-5.90) m/uL Hgb (13.0-17.5) gm/dL Hct (39.0-53.0) % Neutrophils # 9.2 H (1.3-7.7) k/uL Sodium (137-145) mmol/L Potassium (3.5-5.1) mmol/L Chloride 108 H (98-107) mmol/L Glucose 183 H (74-99) mg/dL POC Glucose (mg/dL) 177 H (75-99) mg/dL Hemoglobin A1c (4.0-6.0) % 02/27/20 02/27/20 02/27/20 Range/Units 07:25 07:25 07:25 WBC 15.1 H (3.8-10.6) k/uL RBC 4.07 L (4.30-5.90) m/uL Hgb 12.6 L (13.0-17.5) gm/dL Hct 38.1 L (39.0-53.0) % Neutrophils # (1.3-7.7) k/uL Sodium 136 L (137-145) mmol/L Potassium 5.3 H (3.5-5.1) mmol/L Chloride 110 H (98-107) mmol/L Glucose 177 H (74-99) mg/dL POC Glucose (mg/dL) (75-99) mg/dL Hemoglobin A1c 7.3 H (4.0-6.0) % 02/27/20 Range/Units 11:59 WBC (3.8-10.6) k/uL RBC (4.30-5.90) m/uL Hgb (13.0-17.5) gm/dL Hct (39.0-53.0) % Neutrophils # (1.3-7.7) k/uL Sodium (137-145) mmol/L Potassium (3.5-5.1) mmol/L Chloride (98-107) mmol/L Glucose (74-99) mg/dL POC Glucose (mg/dL) 141 H (75-99) mg/dL Hemoglobin A1c (4.0-6.0) % H & H 02/26/20 02/27/20 Range/Units 21:57 07:25 Hgb 14.1 12.6 L (13.0-17.5) gm/dL Hct 44.1 38.1 L (39.0-53.0) % Result Diagrams: 02/27/20 07:25 02/27/20 07:25 Assessment and Plan Plan: The patient is seen and examined at bedside today. He said he woke up this afternoon after [place] and is feeling significantly better. He is not having any significant pain in his lower extremities or his lower back. He says he is about a 2 out of 10 whereas earlier he was an 8 out of 10. He is denying any problems with his bowel bladder function. Denies any weakness in his lower extremities. His MRI is reviewed. On exam he's afebrile stable vital signs. He has 5 over 5 muscle strength 4/plantar flexion and EHL hip flexion and knee extension. The patient has a disc herniation at the right paracentral area of L4 5 which relates well with his low back and right lower extremity symptoms. He has some degenerative disc disease at L4 5. Currently the patient's symptoms are making good improvement with conservative care. He feels he is doing much better today in terms of his low back and his leg. He is wearing further workup in terms of his GI bleed. If his symptoms return or are worsening at his lower extremity he would be a candidate for interventional pain management and epidural steroid injections. With his improvement thus far do not plan on any acute surgical intervention. He is not having acute neurologic deficit and it would be okay for him to follow up on an outpatient basis from orthopedic spine standpoint. I discussed this with him answers questions is agreeable.
--- NOTE | 2020-02-27 11:44 | MR ---
EXAMINATION TYPE: MR lumbar spine wo/w con DATE OF EXAM: 02/27/2020 COMPARISON: NONE HISTORY: R hip and back pain TECHNIQUE: T1 and T2 axial and sagittal, postcontrast T1 axial and sagittal images submitted. 11.5 m L of gadolinium distal injected. FINDINGS: There is no abnormal signal seen within the visualized spinal cord or paraspinal soft tissu es. Subcentimeter right renal lesion is indeterminate due to size. Aorta of normal caliber. Cystic st ructure in the right lower pelvis likely represents a uterine distended bladder. At L1-2 there is there is a vertebral body hemangioma of L1. There is mild to moderate degenerative d isc disease with hypertrophic spurring anteriorly. There is a broad-based central disc protrusion wit h mild effacement of thecal sac but no canal stenosis. Neural foramina remain patent. At L2-3 there is no disc herniation or degenerative disc disease. No Canal stenosis. No foraminal enc roachment. At L3-4 there is severe degenerative disc disease with discogenic marrow changes. Broad-based disc pr otrusion or herniation with facet arthropathy and ligamentum flavum results in moderate to severe can al stenosis and bilateral foraminal encroachment. At L4-5 there is severe degenerative disc disease with vacuum disc. There is broad-based central disc herniation slightly greater paracentrally to the right resulting in moderate to severe canal stenosi s. Facet arthropathy and ligamentum flavum flavum hypertrophy contribute. There is mild right foramin al encroachment and moderate right foraminal encroachment. At L5-S1 there is no disc herniation or canal stenosis. Minimal central disc bulging. Neural foramina patent. Vertebral body hemangioma S1 noted. IMPRESSION: 1. Broad-based central disc herniation L4-5 results in moderate to severe compression of the thecal s ac and canal stenosis with bilateral foraminal encroachment. 2. Broad-based disc protrusion or herniation L3-L4 results in moderate to severe canal stenosis and b ilateral foraminal encroachment. 3. Indeterminate subcentimeter right renal lesion correlate clinically.
[2020-02-27 12:00] LABS: Glucose,Whole Blood 141 mg/dL (75-99)
[2020-02-27] MEDS: SODIUM CHLORIDE 0.9% 1,000 ML IV SCH (12:31)
--- NOTE | 2020-02-27 13:43 | P.CONS ---
History of Present Illness - Reason for Consult Consult date: 02/27/20 blood per rectum Requesting physician: Enrico Jeffery - Chief Complaint Blood per rectum - History of Present Illness The patient is a pleasant 54-year-old male with a medical history significant for diabetes mellitus who presented to the hospital with complaints of blood per rectum. The patient reports seeing Gm red blood per rectum. He reports multiple episodes of grossly bloody bowel movements. He denies any nausea or vomiting. No epigastric abdominal pain or lower abdominal pain but he does report some bloating in the lower abdomen. No prior similar episodes. The patient has never had an EGD or colonoscopy in the past. The patient had been using a combination of naproxen and ibuprofen regularly for treatment of back pain. He denies any history of peptic ulcer disease.laboratory evaluation on presentation significant for hemoglobin of 15 which subsequently fell to 12.6 with positive stool testing for occult blood. Computed tomography scan showed d ilated small bowel, diverticulosis as well as a lobulated adrenal mass. Review of Systems REVIEW OF SYSTEMS: CONSTITUTIONAL: Denies any fevers, chills, weight change or fatigue. CARDIOVASCULAR: Denies any chest pain, palpitations high or low blood pressures RESPIRATORY: Denies any shortness of breath, hemoptysis or cough. GENITOURINARY: No dysuria or hematuria. MUSCULOSKELETAL: No weakness reported, but the patient has significant back and joint pain. SKIN: Denies any new rashes or lesions, jaundice or pallor. PSYCHIATRIC: Denies any depression or anxiety. NEUROLOGY: Denies headache, denies any new focal deficits. EARS/NOSE/THROAT: No recent hearing change, congestion, nasal discharge or sore throat. EYES: No pain in eyes, discharge or change in vision. GASTROINTESTINAL: As per HPI. Past Medical History Past Medical History: Diabetes Mellitus Additional Past Medical History / Comment(s): dental pain History of Any Multi-Drug Resistant Organisms: None Reported Past Surgical History: Cholecystectomy, Tonsillectomy Past Anesthesia/Blood Transfusion Reactions: No Reported Reaction Past Psychological History: No Psychological Hx Reported Smoking Status: Current every day smoker Past Alcohol Use History: Occasional Past Drug Use History: None Reported - Past Family History Mother Family Medical History: Diabetes Mellitus Medications and Allergies Home Medications Medication Instructions Recorded Confirmed Type No Known Home Medications 02/27/20 02/27/20 History Allergies Allergy/AdvReac Type Severity Reaction Status Date / Time No Known Allergies Allergy Verified 02/27/20 10:40 Physical Exam Vitals: Vital Signs Temp Pulse Pulse Resp BP BP Pulse Ox 02/27/20 07:51 98 F 83 18 146/77 93 L 02/27/20 04:00 81 18 140/81 96 02/27/20 00:50 99.0 F 86 18 122/67 96 02/27/20 00:41 97.9 F 85 18 143/65 94 L 02/27/20 00:02 84 17 130/76 95 02/26/20 23:00 86 18 140/81 96 02/26/20 22:05 86 18 147/87 96 02/26/20 21:08 98.7 F 85 18 149/89 95 Intake and Output 02/26/20 02/27/20 02/27/20 22:59 06:59 14:59 Output Total 3 Balance -3 Output: Urine 3 Other: Voiding Method Toilet Weight 117.934 kg 115.6 kg On physical examination, patient appears comfortable in no apparent distress. HEAD: Normocephalic, atraumatic. EYES: No scleral icterus. No conjunctival injection. MOUTH: No lesions, tongue midline. NECK: Trachea midline, no gross abnormalities. CHEST: Clear to auscultation with no wheezing or rhonchi appreciated. HEART: Regular rate and rhythm. ABDOMEN: Soft, obese, nontender to palpation. Bowel sounds are positive. No organomegaly. No guarding or rigidity. EXTREMITIES: No pedal edema. SKIN: No rashes, no jaundice. NEUROLOGIC: Alert and oriented x3. No focal deficits. Results CBC & Chem 7: 02/27/20 07:25 02/27/20 07:25 Labs: Abnormal Lab Results - Last 24 Hours (Table) 02/26/20 02/26/20 02/27/20 Range/Units 21:57 21:57 06:22 WBC 13.6 H (3.8-10.6) k/uL RBC (4.30-5.90) m/uL Hgb (13.0-17.5) gm/dL Hct (39.0-53.0) % Neutrophils # 9.2 H (1.3-7.7) k/uL Sodium (137-145) mmol/L Potassium (3.5-5.1) mmol/L Chloride 108 H (98-107) mmol/L Glucose 183 H (74-99) mg/dL POC Glucose (mg/dL) 177 H (75-99) mg/dL 02/27/20 02/27/20 Range/Units 07:25 07:25 WBC 15.1 H (3.8-10.6) k/uL RBC 4.07 L (4.30-5.90) m/uL Hgb 12.6 L (13.0-17.5) gm/dL Hct 38.1 L (39.0-53.0) % Neutrophils # (1.3-7.7) k/uL Sodium 136 L (137-145) mmol/L Potassium 5.3 H (3.5-5.1) mmol/L Chloride 110 H (98-107) mmol/L Glucose 177 H (74-99) mg/dL POC Glucose (mg/dL) (75-99) mg/dL CT scan - abdomen: report reviewed (Computed tomography scan showed dilated small bowel, diverticulosis as well as a lobulated adrenal mass.) Assessment and Plan (1) Blood per rectum Narrative/Plan: 54-year-old pleasant male with medical history significant for diabetes mellitus presenting for multiple episodes of painless bright red blood per rectum. No prior episodes of similar symptoms. No prior colonoscopy reported. Patient denies any history of constipation or diarrhea. Hemoglobin did fall to 12.6 after presentation with stool testing positive for occult blood. Patient has also been on significant NSAID therapy with both naproxen and ibuprofen due to joint and back pain. Unclear etiology, suspicion is for lower GI bleeding with differential including diverticular bleed, hemorrhoidal bleed, AVM or other etiology with upper GI bleed less likely given hemodynamic stability and current hemoglobin, however given significant NSAID use cannot rule out a component of bleeding from peptic ulcer disease or gastritis or esophagitis. Current Visit: Yes Status: Acute Code(s): K62.5 - HEMORRHAGE OF ANUS AND RECTUM SNOMED Code(s): 99754170 (2) GI bleed Current Visit: Yes Status: Acute Code(s): K92.2 - GASTROINTESTINAL HEMORRHAGE, UNSPECIFIED SNOMED Code(s): 25223793 Plan: supportive care Clear liquid diet Nothing by mouth after midnight Bowel prep ordered Continue to monitor CBC and transfuse as needed Continue Protonix 40 mg twice a day Plan for evaluation with EGD and colonoscopy tomorrow, with all of the risks, benefits, and possible complications of the procedure discussed with the patient at length with all of his questions answered to his satisfaction Thank you for allowing us dysphagia in the care of the patient
[2020-02-27 13:45] LABS: Hemoglobin A1C 7.3 % (4.0-6.0)
--- NOTE | 2020-02-27 14:10 | P.PN ---
Subjective Progress Note Date: 02/27/20 Principal diagnosis: bright red blood per rectum Patient is a 54 year old male with a hx of diabetes, tobacco abuse, and obesity presented to the emergency department complaints of bright red blood in stool. The ER he underwent an extensive evaluation. His initial vital signs within normal limits. Initial laboratory analysis showed white blood cell count 13.6, hemoglobin 14.4. Is also having some back and right hip pain with radiculopathy. He underwent lumbar spine x-ray which showed spondylosis at L4 5, right hip x-ray was negative, and CT abdomen and pelvis showed dilated small bowel loops related to ileus or possible mechanical obstruction along with sig moid diverticulosis. There is a bilobed left adrenal mass which is low density noted. His hemoglobin was followed and did come down to 12.1. He had 1 additional bright red bowel movement after admission. GI and orthopedics were consulted. Patient seen and examined at bedside. He reports he is very tired as he did not sleep and 26 hours. He has been having some epigastric pain. Most this pain has been in his low back with some in his right hip and then numbness and tingling that goes to his right knee and intermediately into his right foot. 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 He denies any chest pain, shortness breath, or nausea. He is asking about being discharged today. We discussed risks and benefits of early discharge I stated I would not recommend him to leave prior to being seen by gastroenterology and determining if the scope as needed. General: non toxic, no distress, appears at stated age, obese Derm: warm, dry Head: atraumatic, normocephalic, symmetric Eyes: EOMI, no lid lag, anicteric sclera Mouth: no lip lesion, mucus membranes moist Cardiovascular: S1S2 reg, no murmur, positive posterior tibial pulse bilateral, Lungs: CTA bilateral, no rhonchi, no rales , no accessory muscle use Abdominal: soft, tender to palpation epigastric, no guarding, no appreciable organomegaly Ext: no gross muscle atrophy, no edema, no contractures Neuro: CN II-XI grossly intact, no focal neuro deficits Psych: Alert, oriented, appropriate affect Hematochezia with acute blood loss anemia -PPI -GI recs -Nothing by mouth -Avoid NSAIDs -Follow CBC Lumbar back pain with sciatica -MRI lumbar spine -Consult orthopedics -Continue with gabapentin -Add [place], Dilaudid as needed for breakthrough pain Diabetes mellitus type 2 -Not currently on medications as outpatient -Sliding-scale insulin, Levemir -Hemoglobin A1c 7.3 -Continue with dietary modifications -Metformin on discharge Obesity with BMI 34.6 -Outpatient structured weight loss DVT prophylaxis: SCDs Discussed with: Patient, nursing Anticipated discharge: in 1-[address]: home A total of 35 minutes was spent on the care of this complex patient more than 50% of the time was spent in counseling and care coordination. Objective - Vital Signs Vital signs: Vital Signs Temp 98 F 02/27/20 07:51 Pulse 83 02/27/20 07:51 Resp 18 02/27/20 07:51 BP 146/77 02/27/20 07:51 Pulse Ox 93 L 02/27/20 07:51 Intake & Output 02/26/20 02/27/20 02/27/20 18:59 06:59 18:59 Output Total 3 Balance -3 Weight 115.6 kg Output: Urine 3 Other: Voiding Method Toilet - Labs CBC & Chem 7: 02/27/20 07:25 02/27/20 07:25 Labs: Abnormal Lab Results - Last 24 Hours (Table) 02/26/20 02/26/20 02/27/20 Range/Units 21:57 21:57 06:22 WBC 13.6 H (3.8-10.6) k/uL RBC (4.30-5.90) m/uL Hgb (13.0-17.5) gm/dL Hct (39.0-53.0) % Neutrophils # 9.2 H (1.3-7.7) k/uL Sodium (137-145) mmol/L Potassium (3.5-5.1) mmol/L Chloride 108 H (98-107) mmol/L Glucose 183 H (74-99) mg/dL POC Glucose (mg/dL) 177 H (75-99) mg/dL 02/27/20 02/27/20 Range/Units 07:25 07:25 WBC 15.1 H (3.8-10.6) k/uL RBC 4.07 L (4.30-5.90) m/uL Hgb 12.6 L (13.0-17.5) gm/dL Hct 38.1 L (39.0-53.0) % Neutrophils # (1.3-7.7) k/uL Sodium 136 L (137-145) mmol/L Potassium 5.3 H (3.5-5.1) mmol/L Chloride 110 H (98-107) mmol/L Glucose 177 H (74-99) mg/dL POC Glucose (mg/dL) (75-99) mg/dL
[2020-02-27 15:51] VITALS: RESP 18
[2020-02-27] MEDS ORDERED: PEG 3350-NA SULF,BICARB,CL/KCL 4,000 ML BOTTLE PO ONE (16:00)
[2020-02-27] MEDS ORDERED: bisacodyL 5 MG TABLET.DR PO ONE (17:00)
[2020-02-27 17:06] LABS: Glucose,Whole Blood 134 mg/dL (75-99)
[2020-02-27 20:02] LABS: Glucose,Whole Blood 178 mg/dL (75-99)
[2020-02-27] MEDS: GABAPENTIN 100 MG CAP PO SCH (20:57)
[2020-02-27] MEDS ORDERED: INSULIN DETEMIR (LEVEMIR) 100 UNIT/ML SYR SQ SCH (21:00)
[2020-02-28] MEDS: SODIUM CHLORIDE 0.9% 1,000 ML IV SCH ×2 (02:51→14:21)
[2020-02-28] MEDS: HYDROmorphone 0.5 MG/0.5 ML SYRINGE IVP PRN ×3 (03:40→11:24)
[2020-02-28 04:15] VITALS: TEMP 97.9
[2020-02-28 06:31] LABS: Glucose,Whole Blood 150 mg/dL (75-99)
[2020-02-28] MEDS: INSULIN ASPART (NovoLOG) 100 UNIT/ML VIAL SQ SCH ×2 (06:45→12:09)
[2020-02-28] MEDS: GABAPENTIN 100 MG CAP PO SCH (07:23)
[2020-02-28] MEDS ORDERED: methylPREDNISolone SOD SUCCI 125 MG/2 ML VIAL IV STA (09:26)
[2020-02-28] MEDS ORDERED: HYDROcodone/APAP 10-325MG 1 EACH TAB PO PRN (09:29)
[2020-02-28] MEDS ORDERED: predniSONE 20 MG TAB PO SCH (09:30)
[2020-02-28 09:34] LABS: HCT 33.9 % (39.0-53.0); HGB 11.2 gm/dL (13.0-17.5); MCH 30.7 pg (25.0-35.0); MCV 93.1 fL (80.0-100.0); Mean Platelet Volume 6.8; Platelet Count 362 k/uL (150-450); RBC 3.63 m/uL (4.30-5.90); RDW 14.3 % (11.5-15.5); WBC 11.7 k/uL (3.8-10.6)
[2020-02-28 09:49] LABS: African American GFR (CKD) >90 (>60 ml/min/1.73 sqM); Anion Gap 5 mmol/L; Blood Urea Nitrogen 11 mg/dL (9-20); Calcium 8.8 mg/dL (8.4-10.2); Carbon Dioxide 21 mmol/L (22-30); Chloride 112 mmol/L (98-107); Glucose 152 mg/dL (74-99); Non-African American GFR(CKD) >90 (>60 ml/min/1.73 sqM); Potassium 4.2 mmol/L (3.5-5.1); Sodium 138 mmol/L (137-145)
--- NOTE | 2020-02-28 11:12 | P.PN ---
Subjective Progress Note Date: 02/28/20 This is a 54-year-old male admitted for management of GI bleed and low back pain. Patient is seen and evaluated at bedside today. Patient reports continued pain in the lower back with numbness of both thighs. Patient denies any change in bowel or bladder function, saddle anesthesia or any new complaints today. Objective - Vital Signs Vital signs: Vital Signs Temp 97.9 F 02/28/20 07:34 Pulse 89 02/28/20 07:34 Resp 18 02/28/20 07:34 BP 147/75 02/28/20 07:34 Pulse Ox 98 02/28/20 07:34 Intake & Output 02/27/20 02/28/20 02/28/20 18:59 06:59 18:59 Intake Total 840 600 Balance 840 600 Weight 114 kg Intake: IV 600 600 Sodium Chloride 0.9% 1, 600 600 000 ml @ 75 mls/hr IV . [id number] CAROLINE Rx#:[id number] Oral 240 Other: Voiding Method Toilet Toilet Toilet # Voids 1 # Bowel Movements 1 - Exam On exam patient is lying in bed in no acute distress. Patient is alert and oriented 3. Patient has full range of motion of bilateral upper and lower extremities. 5/5 strength in bilateral lower extremities. Decreased sensation in bilateral thighs. Bilateral upper extremities are warm and well perfused. - Labs CBC & Chem 7: 02/28/20 09:09 02/28/20 09:09 Labs: Abnormal Lab Results - Last 24 Hours (Table) 02/27/20 02/27/20 02/27/20 Range/Units 07:25 11:59 17:04 POC Glucose (mg/dL) 141 H 134 H (75-99) mg/dL Hemoglobin A1c 7.3 H (4.0-6.0) % 02/27/20 02/28/20 Range/Units 20:00 06:25 POC Glucose (mg/dL) 178 H 150 H (75-99) mg/dL Hemoglobin A1c (4.0-6.0) % Assessment and Plan (1) GI bleed Current Visit: Yes Status: Acute Code(s): K92.2 - GASTROINTESTINAL HEMORRHAGE, UNSPECIFIED SNOMED Code(s): 31426471 (2) Low back pain Current Visit: Yes Status: Acute Code(s): M54.5 - LOW BACK PAIN SNOMED Code(s): 816425457 (3) Right hip pain Current Visit: Yes Status: Acute Code(s): M25.551 - PAIN IN RIGHT HIP SNOMED Code(s): 05872389 Plan: 1. An MRI of the lumbar spine dated 02/27/2020 shows: 1. Broad based central disc herniation L4 5 results in moderate to severe compression of the thecal sac and canal stenosis with bilateral foraminal encroachment. 2. Broad based disc protrusion or herniation L3-L4 results in moderate to severe canal stenosis and bilateral foraminal encroachment. 3. Indeterminant subcentimeter right renal lesion correlate clinically. 2. Patient is afebrile. Patient to undergo colonoscopy and EGD today due to GI bleed. 3. Continue pain control per internal medicine. Patient is unable to utilize NSAIDs due to GI bleed. Patient is started on steroids for pain control. 4. Patient is planning on discharge home today. Recommend continuation of steroids with outpatient follow-up.
[2020-02-28 11:24] VITALS: BP 156/73; PULSE 81
[2020-02-28 12:04] LABS: Glucose,Whole Blood 193 mg/dL (75-99)
[2020-02-28] MEDS ORDERED: PROPOFOL 10 MG/ML 20 ML VIAL IV ONE (12:44)
[2020-02-28] MEDS ORDERED: IV FLUID CONTINUATION 1,000 ML IV ONE (12:48)
[2020-02-28] MEDS ORDERED: SODIUM CHLORIDE 0.9% 500 ML IV ONE ×2 (13:32)
--- NOTE | 2020-02-28 13:37 | P.PCN ---
Date of Procedure: 02/28/20 Description of Procedure: Brief history: 54-year-old male with a medical history significant for diabetes mellitus who presented to the hospital with complaints of blood per rectum. The patient reports seeing Gm red blood per rectum. He reports multiple episodes of grossly bloody bowel movements. He denies any nausea or vomiting. No epigastric abdominal pain or lower abdominal pain but he does report some bloating in the lower abdomen. No prior similar episodes. The patient has never had an EGD or colonoscopy in the past. The patient had been using a combination of naproxen and ibuprofen regularly for treatment of back pain. He denies any history of peptic ulcer disease.laboratory evaluation on presentation significant for hemoglobin of 15 which subsequently fell to 12.6 with positive stool testing for occult blood. Computed tomography scan showed dilated small b owel, diverticulosis as well as a lobulated adrenal mass. Procedure performed: Esophagogastroduodenoscopy with biopsy Colonoscopy with polypectomy Estimated blood loss: Minimal. Preoperative diagnosis: GI bleeding, hematochezia Anesthesia: MAC Procedure: After informed consent was obtained from the patient was brought into the endoscopy unit and IV sedation was administered by anesthesia under continuous monitoring. Initially upper endoscopy was done. The Olympus GF 190 video endoscope was inserted into the mouth and esophagus intubated without any difficulty and was gradually advanced into the stomach and duodenum and carefully examined. The bulb and second part of the duodenum appeared normal, except for some mild scattered erythema suggestive of mild duodenitis with biopsies taken. The scope was then withdrawn into the stomach adequately insufflated with air and upon careful examination the antrum and body, cardia and fundus appeared normal, except for some mild scattered erythema in the antrum and body suggestive of mild gastritis with biopsies taken. The scope was then withdrawn into the esophagus. The GE junction was located at 40 cm to the incisors. It appeared regular with no erythema erosions or ulcerations. Rest of the esophagus appeared normal. Patient tolerated the procedure well. At this time the patient continued to remain sedation. Initial digital rectal examination was normal. Olympus CF 190 video colonoscope was then inserted into the rectum and gradually advanced to the cecum without any difficulty. Careful examination was performed as the scope was gradually being withdrawn. The prep was good. The cecum, ascending colon, transverse colon, descending colon, sigmoid colon and rectum appeared normal. Numerous small and large mouth diverticula noted in the left colon. Cold snare polypectomy use for removal of 5 polyps, 6 mm flat cecal polyp, 4 mm ascending colon polyp, 5 mm transverse colon polyp, 3 mm descending colon polyp and 3 mm rectal polyp. Retroflexion was performed in the rectum and no lesions were noted. The terminal ileum was intubated and appeared normal. Patient tolerated the procedure well. Impression: 1. Mild gastritis, antrum and body biopsied. Mild duodenitis, biopsied. 2. No active bleeding noted in the entire examined on from rectum to cecum as well as terminal ileum. 5 polyps removed with cold snare polypectomy from the cecum, ascending colon, transverse colon, descending colon and rectum. Moderate left colonic diverticulosis. Recommendations: Findings of this examination were discussed with the patient. Okay for low fiber diet. Continue to monitor hemoglobin and hematocrit and transfuse as needed. Suspicion is for diverticular bleed given moderate left colonic diverticulosis. Would recommend repeat colonoscopy in 3 years pending pathology from polypectomies.
--- NOTE | 2020-02-28 14:28 | P.DS ---
Providers Date of admission: 02/27/20 00:16 Expected date of discharge: 02/28/20 Attending physician: Enrico Jeffery MD Consults: 02/27/20 00:48 Consult Physician Urgent Consulting Provider: Emily Pyle Consult Reason/Comments: GIB Do you want consulting provider notified?: Yes 02/27/20 07:52 Consult Physician Routine Consulting Provider: Pan An Consult Reason/Comments: Back and hip pain Do you want consulting provider notified?: Yes Primary care physician: Stated None Hospital Course: Discharge Diagnosis: Acute blood loss anemia GI bleed probable diverticular Colon polyps Acute back pain due to lumbar disc disease with radiculopathy DM 2 on insulin Obesity with BMI 34.6 Hospital Course: Patient is a 54 year old male with a hx of diabetes, tobacco abuse, and obesity presented to the emergency department complaints of bright red blood in stool. The ER he underwent an extensive evaluation. His initial vital signs within normal limits. Initial laboratory analysis showed white blood cell count 13.6, hemoglobin 14.4. Is also having some back and right hip pain with radiculopathy. He underwent lumbar spine x-ray which showed spondylosis at L4 5, right hip x-ray was negative, and CT abdomen and pelvis showed dilated small bowel loops related to ileus or possible mechanical obstruction along with sigmoid diverticulosis. There is a bilobed left adrenal mass which is low density noted. His hemoglobin was followed and did come down to 12.1. He had 1 additional bright red bowel movement after admission. GI and orthopedics were consulted. He underwent MRI lumbar spine which showed Disc herniation of L4-5 with moderate to severe compression of the thecal sac and canal stenosis with bilateral foraminal encroachment. He was started on steroids which ortho recommended to continue to discharge. He underwent EGD and Colonoscopy which showed gastritis and 5 colon polyps which were removed. He did have moderate left sided diverticulosis and bleed was suspected to be diverticular. He was determined stable for discharge home as bleeding had resolved. He will establish at the [facility] as currently he does not have insurance. He will start on metformin and hope to come off his insulin completely. A1C 7.3 down from 13. Patient seen and examined at bedside. Still with back pain and leg pain, difficulty walking. Bleeding has stopped, feeling hungry aware of adrenal mass and need for follow-up. Aware of metformin on discharge and no NSAIDS. He will conitnu to check blood sugars. Vital signs reviewed and stable. General: non toxic, no distress, appears at stated age Derm: warm, dry Head: atraumatic, normocephalic, symmetric Eyes: EOMI, no lid lag, anicteric sclera Mouth: no lip lesion, mucus membranes moist Cardiovascular: S1S2 reg, no murmur, positive posterior tibial pulse bilateral, Lungs: CTA bilateral, no rhonchi, no rales , no accessory muscle use Abdominal: soft, nontender to palpation, no guarding, no appreciable organomegaly Ext: no gross muscle atrophy, no edema, no contractures Neuro: CN II-XI grossly intact, no focal neuro deficits Psych: Alert, oriented, appropriate affect A total of 35 minutes of time were spent preparing this complex discharge summary . Patient Condition at Discharge: Stable Plan - Discharge Summary Discharge Rx Participant: No New Discharge Prescriptions: New predniSONE [Deltasone] 0 mg PO DIRECTED #10 tab Gabapentin [Neurontin] 300 mg PO BID #60 cap HYDROcodone/APAP 10-325MG [Crump 10-325] 1 each PO Q6H PRN #28 tab PRN Reason: Moderate Pain Discharge Medication List Gabapentin [Neurontin] 300 mg PO BID #60 cap 02/28/20 [Rx] HYDROcodone/APAP 10-325MG [Crump 10-325] 1 each PO Q6H PRN #28 tab 02/28/20 [Rx] predniSONE [Deltasone] 0 mg PO DIRECTED #10 tab 02/28/20 [Rx] Follow up Appointment(s)/Referral(s): Maya Rosenbaum DO [Doctor of Osteopathic Medicine] - 1 Week None,Stated [Primary Care Provider] - 1-2 days [facility] [NON-STAFF] - 1 Week Activity/Diet/Wound Care/Special Instructions: Activity: as tolerated Diet: carb consistent Special Instructions: Over the counter Prilosec once daily for 10 days. No Aspirin, Aleve, motrin, ibuprofen Return to the emergency department with recurrent blood in stools, dark tarry looking stool Return if leg weakness, increased back pain, stool or urination changes [facility] located in the [facility] at: [address] [place] [id number] Hours of operation are as follows through August 30 (date may be extended due to state mandates): * Saturday 9:00am - 2:00pm * Saturday * Saturday 9:00am 2:00pm * 11:00am 4:00pm * Saturday 9:00am 2:00pm Discharge Disposition: HOME SELF-CARE
== END 2020-02-28 14:46 | disposition home or self-care (01) | DRG 378 ==
LOC: EC 20:54 → 3SCARD 02-27 00:16
PROVIDERS: ADMIT Internal Medicine; ATTEND Internal Medicine
PROC: 0DBL8ZZ Excision of Transverse Colon, Via Natural or Artificial Opening Endoscopic (ICD-10-PCS; principal; 2020-02-28 10:35)
PROC: 0DBM8ZZ Excision of Descending Colon, Via Natural or Artificial Opening Endoscopic (ICD-10-PCS; principal; 2020-02-28 10:35)
PROC: 0DB78ZX Excision of Stomach, Pylorus, Via Natural or Artificial Opening Endoscopic, Diagnostic (ICD-10-PCS; principal; 2020-02-28 10:35)
PROC: 0DBP8ZZ Excision of Rectum, Via Natural or Artificial Opening Endoscopic (ICD-10-PCS; principal; 2020-02-28 10:35)
PROC: 0DBK8ZZ Excision of Ascending Colon, Via Natural or Artificial Opening Endoscopic (ICD-10-PCS; principal; 2020-02-28 10:35)
PROC: 0DBH8ZZ Excision of Cecum, Via Natural or Artificial Opening Endoscopic (ICD-10-PCS; principal; 2020-02-28 10:35)
PROC: 0DB98ZX Excision of Duodenum, Via Natural or Artificial Opening Endoscopic, Diagnostic (ICD-10-PCS; principal; 2020-02-28 10:35)
DX: K57.31 Diverticulosis of large intestine without perforation or abscess with bleeding (principal); D62 Acute posthemorrhagic anemia; D72.829 Elevated white blood cell count, unspecified; E11.9 Type 2 diabetes mellitus without complications; E66.9 Obesity, unspecified; F17.200 Nicotine dependence, unspecified, uncomplicated; K63.5 Polyp of colon; M51.16 Intervertebral disc disorders with radiculopathy, lumbar region; M48.061 Spinal stenosis, lumbar region without neurogenic claudication; K62.1 Rectal polyp; K29.80 Duodenitis without bleeding; K29.70 Gastritis, unspecified, without bleeding; E27.9 Disorder of adrenal gland, unspecified; Z79.4 Long term (current) use of insulin; Z68.34 Body mass index [BMI] 34.0-34.9, adult; Z90.49 Acquired absence of other specified parts of digestive tract; Z90.89 Acquired absence of other organs; Z83.3 Family history of diabetes mellitus
CPT/HCPCS: 36415; 43239; 45385; 72100; 72158; 73502; 74177; 80048; 80053; 82272; 83036; 84484; 85025; 85027; 85730; 86850; 86900; 86901; 88305; 96374; 96375; 99285